=== PATIENT | male | born 2000 | race African-American/Black ===

== ENCOUNTER 2020-10-13 07:00 | Outpatient (RCR) | payer OTHER, SELFPAY | END 2020-10-14 08:00 | disposition home or self-care (01) | LOC: HO.PT 07:00 | PROVIDERS: PCP Pediatrics; Visit Provider Physical Medicine & Rehabilitation | DX: M54.5 Low back pain (principal) | CPT/HCPCS: 97110; 97112; 97162 ==

== ENCOUNTER 2020-10-21 19:57 | Inpatient (IN) | payer OTHER, SELFPAY ==
--- NOTE | ~2020-10-21 | MR_ITS ---
EXAMINATION: MR CERVICAL SPINE WITHOUT CONTRAST CLINICAL INFORMATION: Bilateral leg weakness. COMPARISON: None available. TECHNIQUE: MRI of the cervical spine was obtained using routine sequences without contrast. FINDINGS: Normal anatomic alignment. Normal, homogeneous marrow signal throughout. No suspicious marrow edema. The vertebral body heights are maintained. Mild disc desiccation from C2-C6 without significant loss of height. The spinal cord is normal in appearance. Limited evaluation of the soft tissues of the neck without demonstrated abnormalities. The flow voids of the major cervical vessels are maintained. Normal appearance of the cervicomedullary junction and visualized posterior fossa. The cerebellar tonsils are positioned at the level the foramen magnum. SPINAL LEVELS: C2-C3: Normal annular contour. There is mild right and no left uncovertebral joint arthropathy. There is no facet joint arthropathy. There is no neural foraminal stenosis. There is no spinal canal stenosis. C3-C4: Minimal disc-osteophyte complex. There is moderate right and mild left uncovertebral joint arthropathy. There is mild bilateral facet joint arthropathy. There is moderate right and mild left neural foraminal stenosis. There is no spinal canal stenosis. C4-C5: Mild disc-osteophyte complex. There is mild bilateral uncovertebral joint arthropathy. There is mild bilateral facet joint arthropathy. There is mild bilateral neural foraminal stenosis. There is no spinal canal stenosis. C5-C6: Mild disc-osteophyte complex. There is mild bilateral uncovertebral joint arthropathy. There is moderate and mild left facet joint arthropathy. There is mild right and no left neural foraminal stenosis. There is no spinal canal stenosis. C6-C7: Mild disc-osteophyte complex. There is mild bilateral uncovertebral joint arthropathy. There is mild bilateral facet joint arthropathy. There is mild right and no left neural foraminal stenosis. There is no spinal canal stenosis. C7-T1: Mild disc-osteophyte complex. There is no uncovertebral joint arthropathy. There is no facet joint arthropathy. There is no neural foraminal stenosis. There is no spinal canal stenosis. 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 Mild to moderate neural foraminal narrowings from C3-C7. No overt spinal canal stenosis. No demonstrated spinal cord signal abnormalities.
--- NOTE | ~2020-10-21 | MR_ITS ---
EXAMINATION: MR LUMBAR SPINE WITHOUT CONTRAST CLINICAL INFORMATION: Status post fall. Severe back pain. Unable to ambulate. COMPARISON: Lumbar spine CT 10/21/2020. TECHNIQUE: MRI of the lumbar spine was obtained using routine sequences without contrast. FINDINGS: The lumbar vertebral bodies maintain normal heights and alignment. No compression fracture is seen. There is no bone marrow edema. Mild disc height loss is seen at L4-L5 and L5-S1. The distal spinal cord appears normal. The conus medullaris terminates normally at the L1 level. The visualized paraspinal muscles and intra-abdominal and pelvic contents are within normal limits. SPINAL LEVELS: L1-L2: No posterior disc abnormality. No spinal canal or neural foraminal stenosis. L2-L3: Minimal disc bulging. No spinal canal or neural foraminal stenosis. L3-L4: Disc bulging asymmetric to the right with right subarticular/foraminal protrusion resulting in effacement of the right subarticular zone causing compression of the traversing right L4 nerve root in addition to narrowing of the left subarticular zone. Moderate spinal canal stenosis. Mild bilateral neural foraminal stenosis. L4-L5: Diffuse disc bulging with central protrusion resulting in severe spinal canal stenosis with thecal sac compression and mass effect on the traversing nerve roots. Mild facet arthropathy. Mild bilateral neural foraminal stenosis. L5-S1: Disc bulging with right subarticular protrusion causing compression of the traversing right S1 nerve root and mild spinal canal stenosis. Mild facet arthropathy. Mild narrowing of the neural foramina. MR/MR lumbar spine wo con IMPRESSION: At L4-L5 there is disc bulging with central protrusion causing severe spinal canal stenosis with thecal sac compression and mass effect on the traversing nerve roots. At L5-S1 there is right subarticular protrusion causing compression of the traversing right S1 nerve root and mild spinal canal stenosis. At L3-L4 there is right subarticular/foraminal protrusion causing compression of the traversing right L4 nerve root. Moderate spinal canal stenosis.
--- NOTE | ~2020-10-21 | CT_ITS ---
EXAMINATION: CT LUMBAR SPINE WITHOUT CONTRAST CLINICAL INFORMATION: Low back pain after a fall COMPARISON: MR lumbar spine 06/14/2015 TECHNIQUE: Axial images obtained through the lumbar spine. Coronal and sagittal reformatted images are performed at CT scanner This CT examination was performed using dose optimization techniques as appropriate, variously including the following: *Automated exposure control *Adjustment of mA and/or kV according to patient size (this includes techniques or standardized protocols for targeted exams where dose is matched to indication/reason for exam; i.e. extremities or head) *Use of iterative reconstruction technique DLP; 804 mGy-cm FINDINGS: Lumbar vertebrae have normal height and alignment. No fracture or bone destruction. No paraspinal hematoma or fluid collection. Narrowing of the L4-L5 and L5-S1 disc height similar to prior MR exam. Facet joints are normal. No spondylolysis or spondylolisthesis. CT/CT lumbar spine wo con IMPRESSION: No acute change of lumbar spine. Stable mild disc height narrowing L4-L5 L5-S1 unchanged since prior MR study of 2014.
[2020-10-21 20:16] VITALS: BP 150/96; PULSE 59; RESP 16; TEMP 36.9; O2SAT 96; BMI 34.2
[2020-10-21 20:42] VITALS: BP 146/98; PULSE 63; RESP 18; TEMP 36.8; O2SAT 97
[2020-10-21 21:58] VITALS: BP 136/78; PULSE 64; RESP 16; TEMP 36.9
--- NOTE | 2020-10-21 22:06 | ED_ITS ---
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 Reports legs gave out and fell/twisting backwards, denies direct back trauma/injury. Was able to get himself off ground/ambulate after incident, however states difficulty pain with ambulating/sitting or moving since secondary to pain. Admits to lower extremity tingling/radiation of pain. Denies urinary retention/incontinence, fever, chills MD elicited complaint: back pain Related Data Allergies Allergy/AdvReac Type Severity Reaction Status Date / Time No Known Allergies Allergy Verified 10/21/20 20:23 Review of Systems Review of Systems: Constitutional: No Weight loss, No Fever, No Chills, No Malaise Cardiovascular: No Chest Pain, No SOB Respiratory: No Cough Gastrointestinal: No Nausea, No Vomiting, No Abdominal pain Genitourinary: No Hematuria, No Urinary Incontinence/retention, No Urgency, No Urinary Flow Changes, No Hesitancy Musculoskeletal: + acute on chronic back pain pain, No Myalgias, No Joint Swelling Skin: No Skin Lesions, No rash Neuro: + Weakness, + Numbness/tingling Yes all other systems are reviewed and are negative [facility] Past Medical History Attestation statement: The following information was validated with the patient. 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 Narrowing of lumbar spine Stenosis of lumbosacral spine Social History Social History Alcohol intake: never Smoked in Last 30 Days: No Use of substances other than those prescribed or required for medical reasons: No Advance Directives: No Advance Directives Information Provided: Yes Physical Exam Vital Signs: Vital Signs: Last Vital Signs Temp 98.9 F 10/21/20 23:56 Pulse 59 10/22/20 00:35 Resp 16 10/22/20 00:35 BP 159/78 H 10/21/20 23:56 Pulse Ox 96 10/22/20 00:35 Body Mass Index 34.2 Const: General: cooperative, healthy appearing, comfortable and no acute distress Orientation/consciousness: patient oriented x3 Limitations: no limitations HENMT: Head: Yes normal to inspection Ears: hearing grossly normal bilaterally General nose exam: Normal external nose present Face and sinus: Yes normal facial exam Eyes: General: appearance normal, both eyes and all related structures EOM: EOMs intact bilaterally Neck: Neck: Yes normal visual inspection Resp: Effort & Inspection: normal respiratory effort Cardio: Rate: regular rate Peripheral pulses: dorsalis pedis present GI: Inspection: Yes normal to inspection : Other: Sensation intact to light touch perirectally. Rectal tone intact Back/Spine/Pelvis: Other: No midline thoracic/lumbar spinous tenderness. No step-offs or deformity. Pain is not reproducible on exam Skin: Rashes: no rashes Wounds: no wounds Neuro: Other: Strength intact throughout against gravity. No saddle anesthesia. Great toe dorsiflexion intact General: patient oriented x3 and tone normal Gait exam (Neuro): Normal gait present Extrem: General: Yes normal to inspection Course Course Course Narrative: -CT without acute change of lumbar spine from prior MR in 2014. Patient reports mild symptomatic improvement with medications in the ED, however once moves pain worsens. Unable to get out of bed at this time. Will give IV Dilaudid and re-evaluate. Admission was discussed/offered, would like to avoid if possible -after multiple doses of IV pain medication mother and patient would like admission for further management. Case was discussed with hospitalist who refused secondary to no neurosurgery here. This was discussed with patient, with shared decision making will stay the night in ED for pain management, and re-evaluation in the morning. Do not see need to transfer patient at this time without red flag symptoms, good rectal tone and no acute findings on CT. Case discussed w/Dr. Crews who is in agreement with plan -0200--ED care transferred to Dr. 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 On exam VSS, NAD, no red flag symptoms, or midline spinous tenderness throughout. Strength intact throughout. Concern for MSK pain/strain/twisting injury. Lower concern for cauda equina/cord compression or fracture Plan: CT, Symptomatic treatment/reassess Discharge Plan Discharge Clinical Impression: Lumbar radiculopathy
[2020-10-21] MEDS: Ketorolac Tromethamine 30 MG/ML VIAL IVPUSH (22:10)
[2020-10-21] MEDS: Lidocaine 4 % Patch ADH..PATCH 1 PATCH TRANSDERMA (22:10)
[2020-10-21] MEDS: Morphine Sulfate 2 MG/ML CARTRIDGE IVPUSH (22:10)
[2020-10-21 23:12] VITALS: BP 126/72; PULSE 59; RESP 16; O2SAT 97
[2020-10-21 23:56] VITALS: BP 159/78; PULSE 60; RESP 16; TEMP 37.2; O2SAT 99
[2020-10-22] VITALS (8 sets, daily range): BP systolic 126–163; BP diastolic 61–97; PULSE 59–96; RESP 16–18; TEMP 36.5–36.8; O2SAT 96–100
[2020-10-22] MEDS: Cyclobenzaprine HCl 10 MG TABLET PO (00:26)
[2020-10-22] MEDS: HYDROmorphone HCl 1 MG/ML SYRINGE IVPUSH (00:27)
--- NOTE | 2020-10-22 01:32 | PC.NURSE ---
attempted to ambulate pt with walker and pt was unable to get out of bed do to pain pa kenton aware. mom want pt to stay and sleep the night with pain medication to help. pt will need a script for a walker for home. repot given to kai de la cruz.
[2020-10-22] MEDS: LORazepam 2 MG/ML VIAL IVPUSH (02:07)
--- NOTE | 2020-10-22 02:12 | PC.NURSE ---
PT A&O, NO SOB OR CHEST PAIN. ASSISTED PROVIDER WITH RECTAL EXAMINATION. PT MEDIATED PER MAR
--- NOTE | 2020-10-22 04:09 | PC.NURSE ---
pt is sleeping, no sign of distress.
--- NOTE | 2020-10-22 06:46 | PC.NURSE ---
pt able to move lower extremities however limited , not full ranged of motion. positive cms.
[2020-10-22 13:36] LABS: COVID-19 Test Negative (Negative); IDNOW Serial# 9DD0AD1C
[2020-10-22 15:22] LABS: MANUAL DIFF FLAG NO
[2020-10-22 15:23] LABS: Basophils Percent Auto 0.2 % (0-2); Eosinophils Percent Auto 0.1 % (0-4); Hematocrit 46.2 % (42-52); Hemoglobin 16.1 g/dl (14.0-18.0); Imm Gran Abs Auto 0.04 X10*3/uL (0.00-0.03); Imm Gran Pct Auto 0.3 % (0.0-0.4); Lymphocytes Absolute Auto 1.7 X10*3/uL (1.2-4.9); Lymphocytes Percent Auto 13.8 % (20-40); Mean Corpuscular HGB Conc 34.8 g/dl (31.0-36.0); Mean Corpuscular Hemoglobin 29.2 pg (27.0-33.0); Mean Corpuscular Volume 83.8 fL (80-98); Mean Platelet Volume 9.3 fL (9.4-12.4); Monocytes Absolute Auto 0.9 X10*3/uL (0.1-1.2); Neutrophils Absolute Auto 9.5 X10*3/uL (2.0-8.3); Neutrophils Percent Auto 78.6 % (45-73); Platelet Count 238 X10*3/uL (160-400); Red Blood Count 5.51 X10*6/uL (4.60-5.80); Red Cell Distribution Width 12.1 % (11.0-16.0); White Blood Count 12.1 X10*3/uL (4.8-10.8)
[2020-10-22 15:55] LABS: Anion Gap 13 (12-20); Blood Urea Nitrogen 18 mg/dL (9-16); Calcium 9.6 mg/dL (8.4-10.2); Carbon Dioxide 27 mmol/L (22-29); Chloride 104 mmol/L (96-108); Creatinine Clr Calc Pharmacy 133.3; Estimated Glomerular Filt Rate > 60; Glucose Random 95 mg/dL (60-115); Potassium 4.1 mmol/L (3.3-5.1); Sodium 140 mmol/L (135-145)
[2020-10-22 16:10] LABS: Erythrocyte Sedimentation Rate 2 MM/HR (0-15)
--- NOTE | 2020-10-22 16:40 | PC.NURSE ---
pt resting quietly in room laying semi fowlers , resp wnl, neuros intact. pt denies pain while lying down, pain increases with movement 9/10 pain when trying to walk. plan is for pt to be admitted to [facility] for pain control. pt will follow up with [facility] neuro on saturday.
--- NOTE | 2020-10-22 17:21 | P.HPHOSP_ITS ---
History of Present Illness Date of Service: 10/22/20 Chief Complaint: Fall and back pain. 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 Initially Was able to get himself off ground/ambulate after he came home but afterwards has pain with ambulating/sitting or moving since secondary to pain. Admits to lower extremity tingling/radiation of pain. Denies urinary retention/incontinence, fever, chills No other symptoms accept above described. As per the ED:Spoke to neurosurgical CHERRY Quinones at [facility] multiple times, MRIs reviewed, case reviewed, and deemed patient is not an emergent surgical candidate, is pain management, and will have him see them in clinic on Saturday. Plan to admit to our hospital for further management. [facility] refused transfer. Both parents are in agreement with the planned to admit as well as the patient himself- pain management and in addition we have discussed the case with Neurology on-call and plan to admit for pain management and will continue to monitor the patient here. Family understands if neurological symptom worsen -he might need to be transferred that situation. Past medical history: Compressed cervical disc Lumbar disc prolapse with root compression Narrowing of lumbar spine Stenosis of lumbosacral spine Review of Systems Review of Systems: Denies any chest pain or shortness of breath or abdominal pain or fever or chills or any urinary complaints. Denies any vision changes or any dizziness. Denies any nausea or vomiting Denies Cough or phlegm Has bilateral lower extremity pain and weakness at least 4 week duration which was got worse after yesterday fall. [facility] Medical History Compressed cervical disc Lumbar disc prolapse with root compression Narrowing of lumbar spine Stenosis of lumbosacral spine Pertinent family history: Not contributory to this visit. Social History Household Members: Family Housing: House Do you presently have visiting nurse or other home services: No Alcohol intake: never Smoking Status: Former smoker Tobacco Type: Cigarette Smoked in Last 30 Days: No Use of substances other than those prescribed or required for medical reasons: No Currently Displaying Signs/Symptoms of Drug Intoxication Withdrawal: No Have you been hit, kicked, punched, or otherwise hurt by someone within the past year? If so, by whom?: No Do you feel safe in your current relationship?: Yes Is there a partner from a previous relationship who is making you feel unsafe now?: No Are you made to feel afraid or neglected: No Advance Directives: No Advance Directives Information Provided: Yes Do you have thoughts of harming others: None Do you have a plan to hurt others: No Plan Recently lost weight without trying: No Meds Allergies Allergy/AdvReac Type Severity Reaction Status Date / Time No Known Allergies Allergy Verified 10/21/20 20:23 Home Medications Medication Instructions Recorded Confirmed Type prednisone PO 10/22/20 History pregabalin [Lyrica] 75 mg PO BID 10/22/20 10/22/20 History Physical Exam Vital Signs and Narrative: Vital Signs: Last Vital Signs Temp 98.2 F 10/22/20 13:33 Pulse 76 10/22/20 13:33 Resp 18 10/22/20 13:33 BP 139/76 10/22/20 13:33 Pulse Ox 97 10/22/20 13:33 Body Mass Index 34.2 Physical exam: Constitutional: No Weight loss, No Fever, No Chills, No Malaise Cardiovascular: No Chest Pain, No SOB Respiratory: No Cough Gastrointestinal: No Nausea, No Vomiting, No Abdominal pain Genitourinary: No Hematuria, No Urinary Incontinence/retention, No Urgency, No Urinary Flow Changes, No Hesitancy Musculoskeletal: + acute on chronic back pain pain, No Myalgias, No Joint Swelling Skin: No Skin Lesions, No rash Neuro:Eomi , Perrla Adduction and abduction lower extremity intact No urinary or bowel incontinence Bilateral legs have so somewhat weakness for at least 4/5 (right>left) Has some numbness and tingling on the foot area Upper extremities sensation and strength is intact. dtr: Equivocal Yes all other systems are reviewed and are negative. Results Labs CBC and Chem 7: 10/22/20 15:18 10/23/20 08:17 Labs: Laboratory Results - last 24 hr 10/22/20 10/22/20 10/22/20 13:14 15:18 15:18 MCV 83.8 MCH 29.2 MCHC 34.8 RDW 12.1 Plt Count 238 MPV 9.3 L Immature Gran % (Auto) 0.3 Neut % (Auto) 78.6 H Lymph % (Auto) 13.8 L [place] % (Auto) 7.0 Eos % (Auto) 0.1 Baso % (Auto) 0.2 Lymph # (Auto) 1.7 [place] # (Auto) 0.9 Eos # (Auto) 0.0 Baso # (Auto) 0.0 Abs Immat Gran (auto) 0.04 H Absolute Neuts (auto) 9.5 H Absolute Nucleated RBC 0.000 Nucleated RBC % (auto) 0.0 ESR 2 Anion Gap Estim Creat Clear Calc Estimated GFR Random Glucose Calcium C-Reactive Protein COVID-19 (MILEY) Negative COVID-19 Clin Com See Note 10/22/20 15:18 MCV MCH MCHC RDW Plt Count MPV Immature Gran % (Auto) Neut % (Auto) Lymph % (Auto) [place] % (Auto) Eos % (Auto) Baso % (Auto) Lymph # (Auto) [place] # (Auto) Eos # (Auto) Baso # (Auto) Abs Immat Gran (auto) Absolute Neuts (auto) Absolute Nucleated RBC Nucleated RBC % (auto) ESR Anion Gap 13 Estim Creat Clear Calc 133.3 Estimated GFR > 60 Random Glucose 95 Calcium 9.6 C-Reactive Protein 0.10 COVID-19 (MILEY) COVID-19 Clin Com Imaging Radiologist's Impressions: Impressions Lumbar Spine CT 10/21/20 23:18 IMPRESSION: No acute change of lumbar spine. Stable mild disc height narrowing L4-L5 L5-S1 unchanged since prior MR study of 2014. Lumbar Spine MRI 10/22/20 10:29 IMPRESSION: At L4-L5 there is disc bulging with central protrusion causing severe spinal canal stenosis with thecal sac compression and mass effect on the traversing nerve roots. At L5-S1 there is right subarticular protrusion causing compression of the traversing right S1 nerve root and mild spinal canal stenosis. At L3-L4 there is right subarticular/foraminal protrusion causing compression of the traversing right L4 nerve root. Moderate spinal canal stenosis. Assessment and Plan (1) Lumbar radiculopathy: Status: Acute (2) Protruded lumbar disc: Status: Acute 1. Acute on chronic back pain: Probably related to acute on chronic lumbar radiculopathy: Will start the patient on IV Toradol, oxycodone, po tanzidine, omeprazole Neuro checks Neuro evaluation As per the patient family patient already has appointment on Saturday with Neurosurgery, the patient patient condition worsen we will transfer the patient to [facility] patient's family is in agreement with that.
[2020-10-22] MEDS: Ketorolac Tromethamine 15 MG/ML VIAL IV ×2 (17:34→23:29)
[2020-10-22] MEDS: dexAMETHasone sod phosphate 4 MG/ML VIAL 6 MG IVPUSH (18:16)
[2020-10-22] MEDS: Lactated Ringers 1,000 ML 80 ML IVCONT (18:17)
--- NOTE | 2020-10-22 19:57 | PC.NURSE ---
pt is alert and oriented x4. gillis. no s/s of distress noted. plan is to be admitted.
[2020-10-22] MEDS: Pregabalin 75 MG CAPSULE PO (21:23)
[2020-10-22] MEDS: TiZANidine HCL 4 MG TABLET PO (21:23)
[2020-10-22] MEDS: Omeprazole 20 MG CAPSULE.DR PO (21:25)
[2020-10-23] VITALS (7 sets, daily range): BP systolic 107–160; BP diastolic 57–79; PULSE 60–75; RESP 15–19; TEMP 36.3–37.1; O2SAT 95–98
[2020-10-23] MEDS: Ketorolac Tromethamine 15 MG/ML VIAL IV ×4 (06:00→23:27)
[2020-10-23] MEDS: Lactated Ringers 1,000 ML 80 ML IVCONT ×2 (06:03→18:43)
[2020-10-23] MEDS: oxyCODONE HCl Immed Release 5 MG TABLET PO (06:05)
[2020-10-23 09:05] LABS: Anion Gap 13 (12-20); Blood Urea Nitrogen 21 mg/dL (9-16); Carbon Dioxide 30 mmol/L (22-29); Chloride 104 mmol/L (96-108); Creatinine Clr Calc Pharmacy 117.6; Estimated Glomerular Filt Rate > 60; Glucose Random 131 mg/dL (60-115); Potassium 4.2 mmol/L (3.3-5.1); Sodium 143 mmol/L (135-145)
[2020-10-23 09:10] LABS: Calcium 9.4 mg/dL (8.4-10.2)
[2020-10-23] MEDS: Pregabalin 75 MG CAPSULE PO ×2 (09:59→20:34)
[2020-10-23] MEDS: Omeprazole 20 MG CAPSULE.DR PO ×2 (09:59→22:12)
[2020-10-23] MEDS: polyethylene glycoL 3350 17 GM POWD.PACK PO (09:59)
[2020-10-23] MEDS: TiZANidine HCL 4 MG TABLET PO ×2 (09:59→20:34)
[2020-10-23] MEDS: Enoxaparin Sodium 40 MG/0.4 ML SYRINGE SUBCUT (10:00)
--- NOTE | 2020-10-23 10:11 | P.CNNE_ITS ---
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 He had low back pain now and then. He said that he played basketball few weeks ago and after that his pain worsened. He came to emergency room yesterday with severe pain and weakness and numbness in legs and inability to walk. There was no complaint of any bowel bladder problems. He denied any neck pain or any mental symptoms. Review of Systems Review of Systems: No recent cold or flu-like illness or bowel bladder complained or trauma. [facility] Past Medical History Medical History Compressed cervical disc Lumbar disc prolapse with root compression Narrowing of lumbar spine Stenosis of lumbosacral spine Social History Social History Household Members: Family Housing: House Do you presently have visiting nurse or other home services: No Alcohol intake: never Smoking Status: Former smoker Tobacco Type: Cigarette Smoked in Last 30 Days: No Use of substances other than those prescribed or required for medical reasons: No Currently Displaying Signs/Symptoms of Drug Intoxication Withdrawal: No Have you been hit, kicked, punched, or otherwise hurt by someone within the past year? If so, by whom?: No Do you feel safe in your current relationship?: Yes Is there a partner from a previous relationship who is making you feel unsafe now?: No Are you made to feel afraid or neglected: No Advance Directives: No Advance Directives Information Provided: Yes Do you have thoughts of harming others: None Do you have a plan to hurt others: No Plan Recently lost weight without trying: No Meds Allergies Allergy/AdvReac Type Severity Reaction Status Date / Time No Known Allergies Allergy Verified 10/21/20 20:23 Home Medications Medication Instructions Recorded Confirmed Type prednisone PO 10/22/20 History pregabalin [Lyrica] 75 mg PO BID 10/22/20 10/22/20 History Physical Exam Vital Signs: Vital Signs: Last Vital Signs Temp 97.9 F 10/23/20 07:21 Pulse 75 10/23/20 07:21 Resp 16 10/23/20 07:21 BP 160/69 H 10/23/20 07:21 Pulse Ox 96 10/23/20 07:21 Body Mass Index 34.2 He was alert and awake with normal spontaneity of speech fluency comprehension and affect. He was very well-built muscular young man in no distress. Pupils were equal and reactive to light and extraocular muscles were intact. Visual adames are full. Face was symmetrical. There was no pronator drift. [id number] testing was normal. Arm reflexes were trace to 1+ well knee r eflexes were 2 to 3+ and ankle reflexes were trace to 1+ with flexor plantars. He was able to lift his legs against gravity. Joint position sensation in toes was present. Results Labs CBC & Chem 7: 10/22/20 15:18 10/23/20 08:17 Labs: Short CBC 10/22/20 Range/Units 15:18 WBC 12.1 H (4.8-10.8) X10*3/uL Hgb 16.1 (14.0-18.0) g/dl Hct 46.2 (42-52) % Plt Count 238 (160-400) X10*3/uL BMP 10/22/20 10/23/20 15:18 08:17 Sodium 140 143 Potassium 4.1 4.2 Chloride 104 104 Carbon Dioxide 27 30 H BUN 18 H 21 H Creatinine 1.12 1.27 Calcium 9.6 9.4 His lumbosacral spine MRI revealed multilevel degenerative changes and discs and multilevel disc osteophyte complex. At L5-S1 it was impinging on the right exiting nerve root, at L4-5 it resulted in significant stenosis with compression of nerve roots, and at L3-4 again there was right-sided disc osteophyte bulge that was moderately narrowing the exiting foramen. A noncontrast head CT in 2012 reveal no significant abnormality. Assessment and Plan (1) Spinal stenosis of lumbar region: Status: Acute 19 years old man with congenital lumbosacral spinal stenosis with multilevel degenerative disc disease and multilevel disc osteophyte disease resulting in significant pathology at L5-S1 and L4-5. This would explain his complain of severe pain and numbness or weakness of her right leg. While in the bed, he was not in any distress. At this time my recommendation is to continue oral prednisone starting with 60 mg daily for 3 days and then tapering it off, which might help to alleviate some information and provide pain relief. Lyrica dose could be increased to 150 mg 3 times a day. I would continue this medicine after a week or 2 if it was providing significant pain relief. Otherwise he required neurosurgical intervention. Sometime an epidural injection can help but because of multilevel disease and significant pathology, this would not be a long-term solution. (2) Hyperreflexia: Status: Acute His knee reflexes are significantly brisk compared to others, which was a significant finding because of significant lumbosacral spinal stenosis diminishing his leg reflexes. He might have similar pathology and cervical spine. I would recommend an MRI of cervical spine for further investigation.
[2020-10-23] MEDS: dexAMETHasone sod phosphate 4 MG/ML VIAL 6 MG IVPUSH (11:24)
--- NOTE | 2020-10-23 11:49 | HO.PM.IMPN ---
Subjective Subjective Date of Service: 10/23/20 Interval History: Back pain and lower extremity pain Review of Systems Says that with the pain medication pain slightly better and still little bit more can move but otherwise no worsening of symptoms. Denies any chest pain or shortness of breath or abdominal pain or fever or chills or nausea vomiting. Physical Exam Vital Signs: Vital Signs: Last Vital Signs Temp 97.9 F 10/23/20 07:21 Pulse 75 10/23/20 07:21 Resp 16 10/23/20 07:21 BP 160/69 H 10/23/20 07:21 Pulse Ox 96 10/23/20 07:21 Body Mass Index 34.2 Physical exam: Constitutional: Not in acute distress Cvs: rrr, [id number] , no murmur res: clear to auscultation ,no rhonchii or wheezing abd: no rebound or guarding ,nt, bs present. ext pulses present , no cyanosis neuro: similar as yesterday. Objective Data Current Medications Generic Name Dose Route Start Last Admin Trade Name Eugeneq PRN Reason Stop Dose Admin Docusate Sodium 100 mg 10/22/20 17:17 Docusate Sodium 100 Mg Capsule PO BID PRN Constipation Enoxaparin Sodium 40 mg 10/23/20 09:00 10/23/20 10:00 Enoxaparin Sodium 40 Mg/0.4 Ml Syringe SUBCUT 40 mg DAILY RODOLFO Administration Lactated Ringer's 1,000 mls @ 80 mls/hr 10/22/20 17:45 10/23/20 07:40 Lr IVCONT 0 mls/hr .[id number] RODOLFO Infusion Ketorolac Tromethamine 15 mg 10/22/20 17:17 10/23/20 11:24 Ketorolac Tromethamine 15 Mg/Ml Vial IV 15 mg Q6H RODOLFO Administration Omeprazole 20 mg 10/22/20 21:00 10/23/20 09:59 Omeprazole 20 Mg Capsule.Dr PO 20 mg BID RODOLFO Administration Oxycodone HCl 5 mg 10/22/20 17:17 10/23/20 06:05 Oxycodone Hcl Immed Release 5 Mg Tablet PO 5 mg Q6H PRN Administration Pain, Mild (Pain Scale 1-3) Polyethylene Glycol 17 gm 10/23/20 09:00 10/23/20 09:59 Polyethylene Glycol 3350 17 Gm Powd.Pack PO 17 gm DAILY RODOLFO Administration Pregabalin 75 mg 10/22/20 21:00 10/23/20 09:59 Pregabalin 75 Mg Capsule PO 75 mg BID RODOLFO Administration Sodium Chloride 3 ml 10/23/20 00:00 10/23/20 08:05 0.9 % Sodium Chloride Flush 3 Ml Syringe IVFLUSH Not Given QSHIFT RODOLFO Tizanidine HCl 4 mg 10/22/20 21:00 10/23/20 09:59 Tizanidine Hcl 4 Mg Tablet PO 4 mg BID RODOLFO Administration Labs CBC & Chem 7: 10/22/20 15:18 10/24/20 09:07 Assessment and Plan (1) Spinal stenosis of lumbar region: Status: Acute (2) Lumbar radiculopathy: Status: Acute Assessment and Plan: 1. Acute on chronic back pain: Probably related to acute on chronic lumbar radiculopathy: continue IV Toradol, oxycodone, po tanzidine, omeprazole Neuro checks Neuro evaluation pending :added prednisone , lyrica
--- NOTE | 2020-10-23 15:10 | PC.NURSE ---
Pt A&Ox3, neuros WNL excpet paresthesias to right foot/toes and hyperreflexia with knee relfex test. Pt has not ambulated today, only able to take 3 steps yesterday. VSS, BP has been elevated, pt denies pain. NSR 70-90. Lungs clear, on room air. Afebrile. Voiding in urinal. Uses call gutierrez appropriately. Report given to [facility]. nurse.
[2020-10-23] MEDS: 0.9 % Sodium Chloride Flush 3 ML SYRINGE IVFLUSH ×2 (16:52→23:27)
[2020-10-23] MEDS: HYDROmorphone HCl 0.5 MG/0.5 ML SYRINGE IVPUSH (20:33)
[2020-10-23] MEDS: Docusate Sodium 100 MG CAPSULE PO (20:34)
[2020-10-24 04:00] VITALS: BP 141/68; PULSE 67; RESP 16; TEMP 36.4; O2SAT 97
[2020-10-24] MEDS: Ketorolac Tromethamine 15 MG/ML VIAL IV (05:45)
[2020-10-24] MEDS: Lactated Ringers 1,000 ML 80 ML IVCONT (05:46)
[2020-10-24 07:31] VITALS: BP 166/76; PULSE 56; RESP 16; TEMP 36.7; O2SAT 95
--- NOTE | 2020-10-24 08:34 | MHC.CM.PN ---
pt lives at home c his mother in their home. he reports he is independent in his care. he denies the need for vna at dc. pt does not use an AD c ambulation at baseline. dc pt mother can assist him c his needs this will include a ride home at pa. dc plan is home no svcs at this time. cm to cont. to follow.
[2020-10-24] MEDS: polyethylene glycoL 3350 17 GM POWD.PACK PO (09:13)
[2020-10-24] MEDS: predniSONE 20 MG TABLET 60 MG PO (09:13)
[2020-10-24] MEDS: Pregabalin 150 MG CAPSULE PO ×2 (09:13→13:31)
[2020-10-24] MEDS: HYDROmorphone HCl 2 MG TABLET 1 MG PO ×2 (09:13→14:48)
[2020-10-24] MEDS: Enoxaparin Sodium 40 MG/0.4 ML SYRINGE SUBCUT (09:14)
[2020-10-24] MEDS: Omeprazole 20 MG CAPSULE.DR PO (09:14)
[2020-10-24] MEDS: 0.9 % Sodium Chloride Flush 3 ML SYRINGE IVFLUSH (09:14)
[2020-10-24] MEDS: TiZANidine HCL 4 MG TABLET PO (09:14)
[2020-10-24 09:46] LABS: Anion Gap 11 (12-20); Blood Urea Nitrogen 19 mg/dL (9-16); Calcium 8.9 mg/dL (8.4-10.2); Carbon Dioxide 29 mmol/L (22-29); Chloride 104 mmol/L (96-108); Creatinine Clr Calc Pharmacy 135.8; Estimated Glomerular Filt Rate > 60; Glucose Random 82 mg/dL (60-115); Potassium 4.2 mmol/L (3.3-5.1); Sodium 140 mmol/L (135-145)
[2020-10-24 11:26] VITALS: BP 174/89; PULSE 86; RESP 16; TEMP 36.9; O2SAT 96
--- NOTE | 2020-10-24 12:32 | P.DS_ITS ---
DS: Providers Provider Date of Service: 11/04/20 Date of admission: 10/22/20 17:17 Primary care physician: Hira Blum MD Consults: 10/22/20 17:20 Consult to Neurology Routine Consulting Provider: [facility] Reason for consultation: ` spinal stenosis/lower extremity pain and weakness. DS: Diagnosis Discharge Diagnosis (1) Spinal stenosis of lumbar region: Status: Acute (2) Lumbar radiculopathy: Status: Acute DS: Medications Discharge Medications Home Medications: Previous Rx's Medication Instructions Recorded hydromorphone 1 mg PO Q4H PRN #1 tab 10/24/20 omeprazole 20 mg PO BID #60 cap 10/24/20 prednisone 60 mg PO DAILY #7 tab 10/24/20 pregabalin [Lyrica] 150 mg PO TID #0 cap 10/24/20 tizanidine 4 mg PO BID #7 tab 10/24/20 DS: Summary Hospital Course Hospital Course: 19-year-old male with a PMHx lumbosacral stenosis, came complaining of acute on chronic low back pain s/p mechanical fall while walking dog in the snow [employer]. Reports legs gave out and fell/twisting backwards, denies direct back t rauma/injury. Initially Was able to get himself off ground/ambulate after he came home but afterwards has pain with ambulating/sitting or moving since secondary to pain. Admits to lower extremity tingling/radiation of pain. Denies urinary retention/incontinence, fever, chills No other symptoms accept above described. As per the ED:Spoke to neurosurgical CHERRY Quinones at [facility] multi ple times, MRIs reviewed, case reviewed, and deemed patient is not an emergent surgical candidate, is pain management, and will have him see them in clinic on Saturday. Plan to admit to our hospital for further management. [facility] refused transfer. Both parents are in agreement with the planned to admit as well as the patient himself- pain management and in addition we have discussed the case with Neurology on-call and plan to admit for pain management and will continue to monitor the patient here. 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 This would explain his complain of severe pain and numbness or weakness of her right leg. While in the bed, he was not in any distress. Seen by neurology recommended to start on prednisone and pregabalin-subsequently added Dilaudid for pain control and received Toradol also. Pain muir slightly better but still has weakness//pain: Discussed with the family and Neurosurgery in [facility] plan to transfer the patient to [facility] for further possible neurosurgical intervention if needed. (2) Hyperreflexia: His knee reflexes are significantly brisk compared to others, which was a significant finding because of significant lumbosacral spinal stenosis diminishing his leg reflexes. He might have similar pathology and cervical spine. I would recommend an MRI of cervical spine for further investigation- at the time of discharge summary the MRI done -results pending , we will send cd's of imaging with the patient. Above management discussed with the patient and his mother in detail length- they both understand and in agreement with the above plan, time spent 50 minutes and 50% time spent on counseling. Significant findings: As above. Procedures performed: None. Treatment and response: As above. Complications: None. Time Spent with Patient Time attestation: Total time spent providing and/or coordinating discharge services: Discharge coordination time: Greater than 30 minutes Physical Exam Vital Signs: Vital Signs: Last Vital Signs Temp 98.5 F 10/24/20 11:26 Pulse 86 10/24/20 11:26 Resp 16 10/24/20 11:26 BP 174/89 H 10/24/20 11:26 Pulse Ox 96 10/24/20 11:26 Body Mass Index 34.2 DS: Data Data Completed and Pending Labs on day of discharge: Laboratory Tests 10/22/20 10/22/20 10/22/20 13:14 15:18 15:18 WBC 12.1 H RBC 5.51 Hgb 16.1 Hct 46.2 MCV 83.8 MCH 29.2 MCHC 34.8 RDW 12.1 Plt Count 238 MPV 9.3 L Immature Gran % (Auto) 0.3 Neut % (Auto) 78.6 H Lymph % (Auto) 13.8 L Morrison % (Auto) 7.0 Eos % (Auto) 0.1 Baso % (Auto) 0.2 Lymph # (Auto) 1.7 Morrison # (Auto) 0.9 Eos # (Auto) 0.0 Baso # (Auto) 0.0 Abs Immat Gran (auto) 0.04 H Absolute Neuts (auto) 9.5 H Absolute Nucleated RBC 0.000 Nucleated RBC % (auto) 0.0 ESR 2 Sodium Potassium Chloride Carbon Dioxide Anion Gap BUN Creatinine Estim Creat Clear Calc Estimated GFR Random Glucose Calcium C-Reactive Protein COVID-19 (MILEY) Negative COVID-19 Clin Com See Note 10/22/20 10/23/20 10/24/20 15:18 08:17 09:07 WBC RBC Hgb Hct MCV MCH MCHC RDW Plt Count MPV Immature Gran % (Auto) Neut % (Auto) Lymph % (Auto) Morrison % (Auto) Eos % (Auto) Baso % (Auto) Lymph # (Auto) Morrison # (Auto) Eos # (Auto) Baso # (Auto) Abs Immat Gran (auto) Absolute Neuts (auto) Absolute Nucleated RBC Nucleated RBC % (auto) ESR Sodium 140 143 140 Potassium 4.1 4.2 4.2 Chloride 104 104 104 Carbon Dioxide 27 30 H 29 Anion Gap 13 13 11 L BUN 18 H 21 H 19 H Creatinine 1.12 1.27 1.10 Estim Creat Clear Calc 133.3 117.6 135.8 Estimated GFR > 60 > 60 > 60 Random Glucose 95 131 H D 82 D Calcium 9.6 9.4 8.9 C-Reactive Protein 0.10 COVID-19 (MILEY) COVID-19 Clin Com Discharge Plan Discharge Patient Disposition: Xfer SNF Referrals: [facility] [Outside] Hira Blum MD [Primary Care Provider] - Discharge Medications: New tizanidine 4 mg Tablet 4 mg PO BID Qty: 7 RF: 0 prednisone 20 mg tablet 60 mg PO DAILY Qty: 7 RF: 0 omeprazole 20 mg Capsule,Delayed Release(Dr/Ec) 20 mg PO BID Qty: 60 RF: 0 hydromorphone 2 mg Tablet 1 mg PO Q4H PRN (Reason: Pain, Moderate (Pain Scale 4-6) Qty: 1 RF: 0 Changed pregabalin [Lyrica] 75 mg Capsule 150 mg PO TID Qty: 0 RF: 0 Discontinued prednisone 20 mg tablet PO RF: 0 Discharge Orders: Discharge Order (Routine); Ordered 10/24/20 Ordered By: Tyson Solorzano Diet: advance to usual diet Activity on Discharge: As tolerated Stand Alone Forms: Patient Portal Discharge page Care Plan Goals: Patient probably has congenital lumbosacral spinal stenosis with multilevel degenerative disc disease and multilevel disc osteophyte disease resulting in significant pathology at L5-S1 and L4-5. He came with bilateral leg pain as well as back pain and has some degree of leg weakness as well as hyperreflexia seen by Neurology and recommended to transfer the patient to [facility] for further management, also recommended to get MRI if is not done by the time of transfer then can be done in [facility]. In addition patient was started on prednisone, Dilaudid, pregabalin-patient says that pain is better somewhat and weaknesses seems unchanged, discussed with Neurosurgery in [facility] Dr Butler have accepted the patient for [facility] stance for patient is subsequently being transferred to [facility]. Health Concerns: As above. Plan of Treatment: As above. Discharge Date/Time: 10/24/20 16:08
== END 2020-10-24 16:08 | disposition skilled nursing facility (03) | DRG 347 ==
LOC: HO.ED 10-22 15:54 → HO.EDOVER 10-22 17:48 → HO.IMC 10-22 18:41 → HO.S3 10-23 12:29 → HO.IMC 10-23 14:08 → HO.S3 10-23 15:55
PROVIDERS: Physician Assistant; Admitting Provider Internal Medicine; Emergency Provider Emergency Medicine; PCP Pediatrics; Visit Provider Internal Medicine
DX: M48.061 Spinal stenosis, lumbar region without neurogenic claudication (principal); R29.2 Abnormal reflex; M54.16 Radiculopathy, lumbar region; Z20.822 Contact with and (suspected) exposure to COVID-19; Z87.891 Personal history of nicotine dependence
CPT/HCPCS: 36415; 72131; 72141; 72148; 80048; 85025; 85652; 86140; 87635; 96374; 96375; 99285; J1100; J1170; J1650; J1885; J2060; J2270

== ENCOUNTER 2021-01-04 10:00 | Outpatient (RCR) | payer OTHER, SELFPAY | END 2021-01-05 08:00 | disposition home or self-care (01) | LOC: HO.PT 10:00 | PROVIDERS: PCP Pediatrics; Visit Provider Neurological Surgery | DX: Z98.890 Other specified postprocedural states (principal) | CPT/HCPCS: 97110; 97112; 97162 ==

== ENCOUNTER 2021-03-21 03:47 | Emergency (ER) | payer OTHER, SELFPAY ==
[2021-03-21 04:35] VITALS: BP 143/66; PULSE 78; RESP 16; TEMP 36.7; O2SAT 96; BMI 36.6
[2021-03-21 06:00] VITALS: BP 116/40; PULSE 58; RESP 15; TEMP 36.7; O2SAT 97
[2021-03-21] MEDS: Diphth,Pertus(ACell),Tet Adult 0.5 ML SYRINGE IM (06:15)
--- NOTE | 2021-03-21 06:27 | ED.WOUNDLAC ---
HPI - Wound/Laceration General Chief Complaint: Wound/Laceration Stated Complaint: hand lac Time Seen by Provider: 03/21/21 06:07 Source: patient Mode of arrival: ambulatory History of Present Illness HPI narrative: 20-year-old male who presents with laceration to the right wrist that he sustained while playing adult hide and seek. He states he caught his hand on a piece of metal and is unsure of when his last tetanus was. Related Data Previous Rx's Medication Instructions Recorded amoxicillin-pot clavulanate 1 tab PO Q12H 5 Days #10 tab 03/21/21 [Augmentin] Allergies Allergy/AdvReac Type Severity Reaction Status Date / Time No Known Allergies Allergy Verified 10/21/20 20:23 Review of Systems Review of Systems: Pertinent positives and negatives as stated in HPI 10 point review of systems is otherwise negative. PMFSH Past Medical History Source: nursing notes reviewed Medical History Compressed cervical disc Lumbar disc prolapse with root compression Narrowing of lumbar spine Stenosis of lumbosacral spine Social History Social History Household Members: Family Housing: House Do you presently have visiting nurse or other home services: No Alcohol intake: never Patient Tobacco Use Status: Never used Tobacco Use of substances other than those prescribed or required for medical reasons: No Advance Directives: No service: No Current occupational status: unemployed Physical Exam Vital Signs: Vital Signs: Last Vital Signs Temp 98.1 F 03/21/21 06:00 Pulse 58 03/21/21 06:00 Resp 15 03/21/21 06:00 BP 116/40 L 03/21/21 06:00 Pulse Ox 97 03/21/21 06:00 Body Mass Index 36.6 VITAL SIGNS: Reviewed. GENERAL: Well developed, well nourished, in no acute distress. HEAD: Normocephalic/atraumatic EYES: PERRLA, EOMI EARS: Ext canals without abnormality OROPHARYNX: no oral lesions noted, posterior pharynx clear NECK: Supple, no adenopathy LUNGS: Normal breath sounds. No adventitious sounds or accessory muscle use. SpO2<97> CARDIOVASCULAR: Regular rate and rhythm without noted murmurs ABDOMEN: Soft, non-tender, non-distended with bowel sounds. RIGHT WRIST/HAND: a 4 cm laceration that is hemostatic but involves subcutaneous tissue down to the muscle bundle and on full range of motion and exploration he is noted to have suspected injury to the EPL NEUROLOGIC: Alert and oriented x 4. Course Course Course Narrative: 20-year-old male with history and clinical presentation consistent with laceration and suspected injury to the EPL. This case was discussed with Dr. Butler, hand surgery, who recommends loose closure and placement in splint with follow-up by calling the office in the morning. Discharge Plan Discharge Clinical Impression: Laceration, Injury of tendon of hand Patient Disposition: Home, Self-Care Instructions: Care For Your Stitches (ED), Laceration (ED), Splint Care (ED), Tendon Laceration (ED) Additional Instructions: 1. Please call the office orthopedics to schedule an evaluation appointment tomorrow morning. 2. Recommend [id number] Tylenol/ ibuprofen as needed for pain control. return to the ER for acute worsening of symptoms. Prescriptions: New amoxicillin-pot clavulanate [Augmentin] 875-125 mg tablet 1 tab PO Q12H 5 Days Qty: 10 RF: 0 Referrals: Hira Blum MD [Primary Care Provider] - 2 days Felicia Butler MD [Physician] - 1 day ( Evaluation and treatment as indicated for suspected Rt EPL injury) Stand Alone Forms: Work/School Release
[2021-03-21] MEDS: Lidocaine HCl 1 % MPF 5 ML VIAL INFILTRATI ×2 (08:19→08:43)
== END 2021-03-21 09:33 | disposition home or self-care (01) ==
PROVIDERS: Emergency Provider Student in an Organized Health Care Education/Training Program; PCP Pediatrics
DX: S66.821A Laceration of other specified muscles, fascia and tendons at wrist and hand level, right hand, initial encounter (principal); S61.511A Laceration without foreign body of right wrist, initial encounter; W26.8XXA Contact with other sharp object(s), not elsewhere classified, initial encounter; Y93.89 Activity, other specified; Y92.096 Garden or yard of other non-institutional residence as the place of occurrence of the external cause; Y99.9 Unspecified external cause status
CPT/HCPCS: 12002; 29125; 90471; 90715; 99284

== ENCOUNTER → 2021-03-22 14:44 | Outpatient (BNVA) | payer OTHER, SELFPAY | PROVIDERS: PCP Pediatrics; Visit Provider Orthopaedic Surgery ==

== ENCOUNTER 2021-03-23 07:15 | Day surgery (SDC) | payer OTHER, SELFPAY ==
[2021-03-23 07:19] VITALS: BP 124/77; PULSE 60; RESP 20; TEMP 36.2; O2SAT 96; BMI 35.9
--- NOTE | 2021-03-23 07:45 | MHC.SHP ---
Pre-Procedural Eval Section A Date of Service: 03/23/21 Section B Chief Complaint: tendon repair,laceration Allergies: Allergies Allergy/AdvReac Type Severity Reaction Status Date / Time No Known Allergies Allergy Verified 03/22/21 14:53 Plan I have reviewed the history and physical and performed a pertinent physical examination on my patient. No changes have occurred unless specified.
--- NOTE | 2021-03-23 07:46 | W.PM.OPN ---
Operative Note Operative Note Date of Service: 03/23/21 Narrative: Operative Note Narrative: Preop diagnosis: 1. right radial wrist laceration 2. right abductor pollicis longus tendon laceration 3. Right extensor pollicis brevis tendon laceration 4. laceration of a branch of the superficial radial nerve to the thumb Postop diagnosis: Same Procedure: 1. Repair of right APL tendon x 2 slips 2. Repair of right EPB tendon 3. Repair of right radial wrist laceration 3.0 cm 4. Repair of a branch of the superficial radial nerve to the thumb at the wrist level Surgeon: Felicia Butler MD Anesthesia: general Findings: 3.0 cm transverse laceration over the radial aspect of the right wrist with laceration of 2 slips of the APL tendon, the EPB tendon and a he branch of the superficial radial nerve to the thumb. Implants: none Tourniquet time: Seventy-six minutes EBL: 5.0 ml Specimen: none Drains: None Complications: None Disposition: Brought to the recovery room in stable condition Plan: Follow-up in 10-14 days for wound check and suture removal place in a short-arm thumb spica splint, and referred to OT for a custom thermoplastic splint and tendon gliding exercises. Indications: The patient is a 20-year-old young man with a right radial wrist laceration and lacerations of the right APL and EPB tendons. This accidentally occurred on a piece of window glass . The risks and benefits of operative treatment, including but not limited to risk of damage to blood vessels, nerves, tendons, infection, recurrence, persistent pain or numbness, incomplete resolution of preoperative symptoms, or need for further surgery were discussed with the patient and they wished to proceed with surgery. Procedure: Once consent was obtained patient was brought back to the operating suite and placed in the operating table in a supine position. . Perioperative antibiotics and anesthesia was administered by the anesthesia team. A tourniquet was applied to the proximal aspect of the right upper extremity and the limb was prepped and draped in a standard surgical fashion. The limb was elevated exsanguinated with Esmarch bandage and the tourniquet inflated to 250 mm of mercury for a total tourniquet time of 76 minutes. the patient's right radial wrist laceration measured 3.0 cm and was oriented transversely. the sutures were removed and the wound was gently opened using tenotomy scissors. I was able to identify the distal aspect of the abductor pollicis longus tendon, which consisted of 2 slips of the tendon. I was also able to draw the proximal aspect of the APL tendon slips into the wound after grasping 1 of them with a small hemostat. There were 2 separate abductor pollicis longus tendon slips. Some 4-0 Prolene suture was passed through each of these tendons and they were held with snaps So that they could be drawn back into the wound for repair. I was unable to identify the extensor pollicis brevis tendon either proximally or distally from the laceration site. I therefore made a 2 cm longitudinal incision over the dorsal aspect of the 1st metacarpal in line with the EPB tendon. The incision was madethrough the skin to the subcutaneous tissues using a 15. Blade. I then carefully dissected down to the level of the extensor pollicis brevis tendon which was laying on the 1st metacarpal. I was then able to trace the path proximally to the wound, and thereby identify the location of the EPB tendon in the wound. Again a suture was placed in this tendon for identification.. I then similarly made a 2 cm longitudinal incision over the 1st dorsal compartment proximal to the radial styloid. Incision was made through the skin to the subcutaneous tissues using a 15. Blade. I then carefully dissected down to the level of the 1st dorsal compartment. The 1st dorsal compartment was then opened longitudinally. There I was able to identify both slips of the APL tendon and also the more slender slip of the extensor pollicis brevis. A suture was passed through the distal aspect of the EPB tendon, and then I was able to pass the tendon distally to the wound. The more dorsal slip of the abductor pollicis longus tendon was 1st repaired using some 3-0 Ethibond suture. I then repaired the more volar slip of the APL tendon again using some 3-0 Ethibond suture. I then used some 6 0 Prolene to further secure the tendon edges using a running locked suture pattern. I then repaired the extensor pollicis brevis tendon using some 4-0 Prolene suture. After evaluating the tissues I was able to find and identify both the proximal and distal aspects of the lacerated branch of the superficial radial nerve. Scissors were used to carefully mobilized both the proximal and distal ends of the nerve in anticipation of possible repair. I elected to repair this using some 6 0 Prolene suture material. At this point the tourniquet was deflated and hemostasis obtained with a brief period of local pressure and bipolar electrocautery. The Wounds were copiously irrigated with normal saline. The subcutaneous layer was closed with 4-0 Vicryl suture, and the skin edges were reapproximated with 4-0 and 5-0 Prolene suture. The wound was infiltrated with some 1% lidocaine with epinephrine for postop pain control and a sterile dressing And short-arm thumb spica splint was applied. The patient appears to have tolerated the procedure well and with no complications. All digits were well vascularized conclusion of the case.
[2021-03-23] MEDS: ceFAZolin Sodium/Dextrose,Iso 2 GM/50 ML PIGGYBACK IV (07:47)
--- NOTE | 2021-03-23 08:14 | P.CONAN_ITS ---
[facility] Active Problems Active Problems: All Active Problems (Updated 03/22/21 @ 15:57 by Felicia maloney MD) Extensor tendon laceration of right wrist with open wound (Acute) Hyperreflexia (Acute) Spinal stenosis of lumbar region (Acute) Lumbar radiculopathy (Acute) Protruded lumbar disc (Acute) Past Medical History Medical History Compressed cervical disc Lumbar disc prolapse with root compression Narrowing of lumbar spine Stenosis of lumbosacral spine Social History Social History Household Members: Family Housing: House Do you presently have visiting nurse or other home services: No Alcohol intake: never Patient Tobacco Use Status: Never used Tobacco Use of substances other than those prescribed or required for medical reasons: No Are you DNR?: No Advance Directives: No Advance Directives Information Provided: No service: No Current occupational status: employed 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 Meds Allergies Allergy/AdvReac Type Severity Reaction Status Date / Time No Known Allergies Allergy Verified 03/22/21 14:53 Exam Exam Date and Time: March 23, 2021 0814 Height,Weight and Vital Signs: Height 5 ft 11 in Weight 117.027 kg Last Vital Signs Temp 97.2 F 03/23/21 07:19 Pulse 60 03/23/21 07:19 Resp 20 03/23/21 07:19 BP 124/77 03/23/21 07:19 Pulse Ox 96 03/23/21 07:19 Airway Mallampati Class: II TM Dist: >3cm Neck ROM: Full Assessment and Plan Assessment Anesthesia Assessment: Anesthesia Plan Discussed and Chart Reviewed Final Anesthetic Review NPO: Yes ASA Class: II Final Preanesthetic Review: No Changes in Pt Med Stat, Meds/Allgs Chart Reviewed, Consent Obtained/Reviewed and Anes Risks/Benef Reviewed Patient Risk: Low Procedure Risk: Low Assessment/Block/Sedation in SS: Assess/Block/Sedation-SS Anesthetic Plan Anesthetic Plan: GA Disposition: Standard PACU
[2021-03-23 10:32] VITALS: BP 179/91; PULSE 97; RESP 16; TEMP 36.5; O2SAT 100
[2021-03-23 10:37] VITALS: BP 179/93; PULSE 96; RESP 18; O2SAT 96
[2021-03-23 10:42] VITALS: BP 162/96; PULSE 98; RESP 16; O2SAT 94
[2021-03-23 10:47] VITALS: BP 164/90; PULSE 97; RESP 18; O2SAT 97
[2021-03-23 10:57] VITALS: BP 150/88; PULSE 98; RESP 18; TEMP 36.7; O2SAT 97
== END 2021-03-23 12:15 | disposition home or self-care (01) ==
PROVIDERS: PCP Pediatrics; Visit Provider Orthopaedic Surgery
PROC: (CPT 25270; principal; 2021-03-23 07:30)
DX: S66.821A Laceration of other specified muscles, fascia and tendons at wrist and hand level, right hand, initial encounter (principal); S66.221A Laceration of extensor muscle, fascia and tendon of right thumb at wrist and hand level, initial encounter; S61.511A Laceration without foreign body of right wrist, initial encounter; S64.21XA Injury of radial nerve at wrist and hand level of right arm, initial encounter; W25.XXXA Contact with sharp glass, initial encounter; Y93.89 Activity, other specified; Y92.9 Unspecified place or not applicable; Y99.8 Other external cause status
CPT/HCPCS: 25270 ×2; 64831; J0690; J1100; J1170; J2250; J2405; J3010

== ENCOUNTER → 2021-04-06 12:23 | Outpatient (BNVA) | payer OTHER, SELFPAY | PROVIDERS: Visit Provider Physician Assistant ==

== ENCOUNTER 2021-05-18 11:00 | Outpatient (RCR) | payer OTHER, SELFPAY ==
--- NOTE | 2021-04-14 15:27 | MHC.OT.OEV ---
[address] [phone] F: [phone] Occupational Therapy Evaluation Diagnosis: Wrist laceration; Post-op repair of APL, EPB and superficial radial nerve at Zone VII Date of Onset: 03/21/21 Date of Surgery: 03/23/21 Attending Provider: Dr Butler Prescribed Treatment: Eval and Treat, custom orthosis and tendon gliding exercises MD Follow Up Appointment: History of Current Condition: 20 yo male was playing [employer], went to stand up and put his hand through a window, resulting in 3 cm wrist laceration. He was seen in ED early that morning, received stitches in the ED and referred to ortho for further assessment. Now post-op repair of EPB, APL and superficial radial nerve. Significant Medical History: Precautions/Contraindications: 3 weeks post-op Zone VII ext tendon repair Patient Goals: Hand Dominance: Left Observations: Post-op dressing QuickDASH Score: Prior Level of Function and Occupation Self Care, Employment, Leisure: Enjoys spending time w/ friends, plays lacrosse Does lanscaping Living Situation, Family and/or Social Support: Lives with his mom Current Level of Function and Occupation Self Care, Employment, Leisure: Out of work since injury Doing most activities w/ dominant left hand Sleep: Driving: Still driving Vision: Balance: Pain Assessment Pain Score: Pain Scale Used: Pain Location and Description: Pain free at rest in radial wrist and thumb Aggravating Factors: Alleviating Factors: Skin and Soft Tissue Assessment Skin and Soft Tissue: Comments: Three surgical incisions clean, intact steri strips Sensory Assessment : Pt reports burning and slightly impaired sensation in thumb tip Edema Assessment Upper Extremity: Comments: Mild/mod edema through thumb, hand and wrist Dexterity Assessment Dexterity: Right Impaired AROM(PROM) Strength Thumb Thumb CMC Flexion: Thumb MCP Flexion: Thumb IP Flexion: Radial Abduction: Palmar Abduction: [place] ([place] 0-10): Comments: Full thumb to full passive extension, active flex sub maximal for protection Patient Education Primary Language: Estonian Reel System Operator Required: No Current Knowledge: Understands information with skills for self-management Teaching Method: Demonstration Handouts Verbal Education Needs Identified on Evaluation: ADL's Disease Information Equipment Use Exercise Pain Safety How did patient/family demonstrate learning? Patient demonstrates Patient verbalizes Family/SO demonstrates Family/SO verbalizes Barriers to Learning: None Readiness for Learning: Accepting Who was educated? Patient Family/other Comments: Pt attends appt w/ mother, both engaged in education, pleasant Plan of Care Assessment: 20 yo male presents 3 weeks post-op Zone T5 tendon repair of APL and EPB w/ superficial radial nerve involvement following radial wrist laceration. He presents w/ post-op dressing, sutures have been removed, three surgical incisions clean, dry and steri strips intact. We will continue OT for splinting and progression of tendon repair protocol. STG Duration: 1 wk Short Term Goals: Ind w/ scar management Ind w/ orthosis management Pt to maintain thumb ext w/ place and hold LTG Duration: 5 weeks R D Engineer Goals: Full active thumb flex and ext Initiate PREs Good participation in self care w/ light bimanual tasks Frequency and Duration: The patient will be seen 2x/wk for 5-6 weeks Treatment Plan: Therapeutic Exercise Therapeutic Activity Home Exercise Program Splinting Neuro Re-ed Patient Education Desensitization/Sensory Re-ed Edema Control ADL Training Ultrasound NMES Paraffin Fluidotherapy MHP Cold Packs Soft Tissue Mobilization Kinesiotaping Paper tape for scar management Pt has been placed in volar orthosis, wrist 30 degrees, MP ext w/ oval 8 for IP ext Electronically Signed By: Bing Hawkins OTR/Anthony Reviewed/agree with student documentation: N/A Therapist: Please sign and return to therapist, Thank you for your referral.
--- NOTE | 2021-05-18 11:16 | MHC.OT.DC ---
[address] [phone] F: [phone] Occupational Therapy Discharge Note Provider: Dr Butler Diagnosis: Wrist laceration; Post-op repair of APL, EPB and superficial radial nerve at Zone VII Date of Surgery: 03/23/21 Date of Evaluation: 04/14/21 Date of Discharge: 05/18/21 Treatments to Date: 4 Discharge Status: Achieved Goals Improved Function Independent with HEP Discharge Summary: 20 yo male now 8 weeks post-op Zone T5 tendon repair of APL and EPB w/ superficial radial nerve involvement following radial wrist laceration. Thumb and wrist ROM WNL at this time, good tendon pull through, mild adhesions noted w/ scar mobilization. All goal met and pt reports he is back to full activity. Electronically Signed By: JOSE Parikh/Anthony Reviewed/agree with student documentation: N/A Therapist: Please Sign and return to therapist, thank you for your referral.
== END 2021-05-18 11:21 | disposition home or self-care (01) ==
LOC: HO.OT 11:00
PROVIDERS: PCP Pediatrics; Visit Provider Physician Assistant
DX: S66.921D Laceration of unspecified muscle, fascia and tendon at wrist and hand level, right hand, subsequent encounter (principal); S61.501D Unspecified open wound of right wrist, subsequent encounter
CPT/HCPCS: 29125; 97110; 97140; 97166; 97760

== ENCOUNTER 2023-03-24 02:06 | Emergency (ER) | payer OTHER, SELFPAY ==
[2023-03-24 02:10] VITALS: BP 164/92; PULSE 65; O2SAT 100
[2023-03-24 02:13] VITALS: BP 136/106; PULSE 60; RESP 18; TEMP 36.4; O2SAT 96; BMI 35.1
--- NOTE | 2023-03-24 03:55 | PC.NURSE ---
pt aox4 no apparent distress, resting quietly resting on R side lower back pain radiates down to L leg s/o at bedside
--- NOTE | 2023-03-24 04:30 | ED.BACK ---
HPI - Back Pain/Injury General Chief Complaint: Back Pain/Injury Stated Complaint: lower back pain Time Seen by Provider: 03/24/23 03:51 Source: patient and family Mode of arrival: EMS History of Present Illness HPI Narrative: 22-year-old male who presents with acute on chronic back pain not associated with fever, chills, bowel or bladder dysfunction but reports that he has significant underlying back issues that required back surgery, patient sees a neurosurgeon through the [facility] system and denies any traumatic injury prior to the onset of this worsening back pain since Saturday. Patient also reports some pain and tingling extending into bilateral buttocks. Related Data Previous Rx's Medication Instructions Recorded amoxicillin 875 mg-potassium 1 tab PO Q12H 5 days #10 tabs 03/21/21 clavulanate 125 mg tablet (Augmentin) hydrocodone 5 mg-acetaminophen 325 1 - 2 tab PO Q6H PRN pain #20 tabs 03/23/21 mg tablet ketorolac 10 mg tablet 10 mg PO Q6H PRN pain 5 days #20 03/24/23 tabs oxycodone 5 mg capsule 5 mg PO Q8H PRN breakthrough pain, 03/24/23 severe #7 caps Allergies Allergy/AdvReac Type Severity Reaction Status Date / Time No Known Allergies Allergy Verified 03/24/23 02:16 Review of Systems Review of Systems: Pertinent positives and negatives as stated in HPI [facility] Past Medical History Source: nursing notes reviewed Medical History Compressed cervical disc Lumbar disc prolapse with root compression Narrowing of lumbar spine Stenosis of lumbosacral spine Social History Social History Household Members: Family Housing: House Do you presently have visiting nurse or other home services: No Alcohol intake: never Patient Tobacco Use Status: Never used Tobacco Advance Directives: No Advance Directives Information Provided: Yes service: No Current occupational status: employed 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 GENERAL: Well developed, well nourished, in no acute distress. HEAD: Normocephalic/atraumatic EYES: PERRLA, EOMI EARS: Ext canals without abnormality NOSE: Nares patent bilateral OROPHARYNX: no oral lesions noted, posterior pharynx clear NECK: Supple, no adenopathy LUNGS: Normal breath sounds. No adventitious sounds or accessory muscle use. SpO2<96> CARDIOVASCULAR: Regular rate and rhythm without noted murmurs ABDOMEN: Soft, non-tender, non-distended with bowel sounds. MUSCULOSKELETAL: No tenderness, deformities, or effusions noted on gross inspection. EXTREMITIES: No cyanosis, clubbing or edema. SKIN: Inspection of the skin reveals no rashes NEUROLOGIC: Alert and oriented x 4. Strength and sensation to light touch were grossly intact x 4, DTRs intact. Medications Administered Discontinued Medications Generic Name Dose Route Start Last Admin Trade Name Freq PRN Reason Stop Dose Admin Acetaminophen 975 mg 03/24/23 02:18 03/24/23 02:20 Acetaminophen 325 Mg Tablet PO 03/24/23 02:19 975 mg ONCE ONE Administration Ibuprofen 600 mg 03/24/23 02:17 03/24/23 02:20 Ibuprofen 600 Mg Tablet PO 03/24/23 02:18 600 mg ONCE ONE Administration Medical Decision Making Medical Decision Making [facility] Narrative: 22-year-old male with history and clinical presentation consistent with acute on chronic back pain and radicular symptoms, no suspicion of cauda equina or spinal abscess. Patient will receive combination analgesics as well as a lidocaine patch and 5 mg of oxycodone. Patient does have good outpatient follow-up with his neurosurgeon which he was strongly encouraged to follow-up with on Saturday morning. Patient has pending MRI as well as physical therapy. Differential Diagnosis Please see the discussion above External Record Review External record reviewed: Prior outpatient labs Discharge Plan Discharge Clinical Impression: Acute exacerbation of chronic low back pain, Spinal stenosis of lumbar region Patient Disposition: Home, Self-Care Instructions: Back Pain (ED), Opioid Safety (ED) Additional Instructions: 1. Tylenol 1000 mg, orally, every 6 hours as needed for pain control. Do not exceed 4000 mg within 24 hours. 2. Lidocaine patch to the area of maximal tenderness as directed on the outside packaging. 3. Please continue to stretch as much as possible. Return to the ED if you experience any fever, chills, loss of bowel or bladder function. Prescriptions: New ketorolac 10 mg tablet 10 mg PO Q6H PRN (Reason: pain) 5 Days Qty: 20 0RF Rx Instructions: Patient received Toradol in the emergency room. oxycodone 5 mg capsule 5 mg PO Q8H PRN (Reason: breakthrough pain, severe) Qty: 7 0RF Rx Instructions: Partial Fill upon patient request. No Action hydrocodone-acetaminophen 5-325 mg tablet 1 - 2 tab PO Q6H PRN (Reason: pain) Qty: 20 0RF amoxicillin-pot clavulanate [Augmentin] 875-125 mg tablet 1 tab PO Q12H 5 Days Qty: 10 0RF Referrals: Hira Blum MD [Primary Care Provider] -
[2023-03-24 05:21] VITALS: BP 138/92; PULSE 62; RESP 18; TEMP 36.6; O2SAT 97
--- NOTE | 2023-03-24 05:25 | PC.NURSE ---
Discharge instructions given and explained to pt No apparent distress alert and oriented all of pt's questions answered w/c to car steady gait, slow
== END 2023-03-24 05:26 | disposition home or self-care (01) ==
PROVIDERS: Emergency Provider Student in an Organized Health Care Education/Training Program; PCP Pediatrics
DX: M54.50 Low back pain, unspecified (principal); Z79.899 Other long term (current) drug therapy
CPT/HCPCS: 96372; 99284; J1885

== ENCOUNTER 2023-03-26 07:15 | Outpatient (REF) | payer OTHER, SELFPAY ==
--- NOTE | ~2023-03-26 | MR_ITS ---
EXAMINATION: MR LUMBAR SPINE WITHOUT AND WITH CONTRAST CLINICAL INFORMATION: History of prior surgery. Left leg radiculopathy and low back pain. COMPARISON: MRI dated 10/22/2020. TECHNIQUE: Multiplanar, multisequence imaging was obtained. Intravenous contrast: Gadavist 10 mL. FINDINGS: VERTEBRAL BODIES AND PARASPINAL STRUCTURES: The marrow signal is within normal limits. There are no compression fractures. Congenital narrowing of the lumbar spinal canal again evident with foreshortening of the pedicles. Reduced intradiscal signal and mild loss of disc height again visible at the L3-L4, L4-L5, and L5-S1 levels. There are chronic postlaminectomy changes at the L4-L5 and L5-S1 levels on the right side. CONUS MEDULLARIS AND CAUDA EQUINE: The distal cord, conus tip, and cauda equina nerve roots are normal. No pathologic intradural enhancement identified. SPINAL LEVELS: L1-L2: No disc pathology, central canal stenosis, or foraminal narrowing. L2-L3: No disc abnormality. Mild facet arthropathy slightly encroaching upon the central canal. No foraminal narrowing. L3-L4: Disc degeneration and central to right subarticular zone disc protrusion with an underlying annular fissure, slightly worsened compared to prior imaging. Findings result in mass effect upon the thecal sac and right L4 nerve root. Hypertrophic facet arthropathy is stable and contributes to moderate central canal stenosis. L4-L5: Postoperative changes with a recurrent broad-based central disc protrusion compressing the thecal sac and L5 nerve roots in the subarticular zones. Postlaminectomy changes and hypertrophic facet arthropathy again evident with central canal stenosis. Moderate right foraminal narrowing and milder left foraminal bulging disc. L5-S1: Disc degeneration and recurrent broad-based central disc protrusion, increased in size compared to previous imaging. The disc protrusion moderately compresses the thecal sac and results in significant mass effect upon both S1 nerve roots. Soft tissue enhancement in the epidural space presumably represents granulation tissue/scar. Stable facet arthropathy and [id number] foraminal narrowing, worse on the right side. MR/MR lumbar spine wo/w con IMPRESSION: 1. Slightly worsened central to right subarticular zone disc protrusion with an underlying annular tear at the L3-L4 level resulting in mass effect upon the thecal sac and right L4 nerve root. Moderate central canal stenosis. 2. Postoperative changes at the L4-L5 level with a recurrent broad-based central disc protrusion compressing the thecal sac and L5 nerve roots. Postlaminectomy changes and facet arthropathy with central canal stenosis, improved from the previous study. Moderate right foraminal narrowing. 3. Recurrent broad-based central disc protrusion at the L5-S1 level with worsened moderate thecal sac compression and significant mass effect upon both S1 nerve roots.
== END 2023-03-26 07:16 | disposition home or self-care (01) ==
LOC: HO.MRI 07:15
PROVIDERS: Visit Provider Neurological Surgery
DX: M54.16 Radiculopathy, lumbar region (principal)
CPT/HCPCS: 72158; A9585

== ENCOUNTER 2023-07-09 14:00 | Outpatient (RCR) | payer OTHER, SELFPAY | END 2023-08-05 10:51 | disposition home or self-care (01) | LOC: HO.PT 14:00 | PROVIDERS: PCP Pediatrics; Visit Provider Neurological Surgery | DX: M54.16 Radiculopathy, lumbar region (principal) | CPT/HCPCS: 97110; 97140; 97162; 97530 ==

== ENCOUNTER 2024-02-24 15:21 | Outpatient (AMB) | payer OTHER, SELFPAY ==
--- NOTE | 2024-02-24 15:25 | MHC.OFFWIV ---
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 He states 3 days ago, he was walking down the front steps of his house when he was at the 2nd to last step and misstepped, falling down the last 2 steps and twisting his left ankle. He was able to ambulate a few steps, although gingerly as it was painful. Since then he has been applying ice, trying to rest it and taking Motrin. He states that today at work, he rolled his ankle again while walking. He endorses more pain and swelling. Patient showed me the ring video, which shows exactly as he described, did not appear he hit his head or lost consciousness. 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 Review of Systems Const All systems reviewed & are unremarkable except as noted in HPI and below Physical Exam Vital Signs: Last Vital Signs Pulse 77 02/24/24 15:26 BP 144/80 H 02/24/24 15:26 Pulse Ox 98 02/24/24 15:26 Const General: cooperative, healthy appearing, comfortable, no acute distress and well developed Orientation/consciousness: patient oriented x3 Limitations: no limitations HEENT Head: Yes normal to inspection Eyes General: appearance normal, both eyes and all related structures Neck Neck: Yes normal visual inspection and Yes full ROM Skin General skin exam: no rashes or lesions noted Neuro General: patient oriented x3 Extrem General: Yes normal to inspection Right lower extremity: normal to inspection and full ROM Left lower extremity: ankle Details: tenderness (At the base of the 5th metatarsal and navicular bone, No TTP lateral or medial malleolus), pitting edema (Ankle joint and foot), abnormal ROM Details: pain with active ROM and with range as follows (Limited due to pain); no pain with passive ROM and ecchymosis (foot) medial ; no warmth, no abrasions and no lacerations Results Reviewed Results Reviewed: FINDINGS: There is a avulsion fracture on the dorsum of the calcaneus. The ankle and foot appear otherwise unremarkable. XR/XR foot LT min 3V IMPRESSION: Avulsion fracture on the dorsum of the calcaneus Assessment & Plan Assessment & Plan (1) Fall down stairs: Code(s): W10.8XXA - Fall (on) (from) other stairs and steps, initial encounter Qualifiers: Encounter type: initial encounter Qualified Code(s): W10.8XXA - Fall (on) (from) other stairs and steps, initial encounter Plan: See below (2) Foot pain, left: Code(s): M79.672 - Pain in left foot Plan: See below (3) Ankle pain, left: Code(s): M25.572 - Pain in left ankle and joints of left foot Qualifiers: Chronicity: acute Qualified Code(s): M25.572 - Pain in left ankle and joints of left foot Plan: See below Plan Applied Gus bandage, recommended RICE. As per [place] [place] [facility] Rules, sent for x-ray of left ankle and foot, advised follow-up with orthopedics if no improvement in the coming days to weeks. And has fracture, called him to let him know. Advised can come in and brain picker a boot if it is more comfortable for him to ambulate with. Also I will send a referral to Orthopedics but if it is healing well and he is feeling good, he can cancel that appointment. FINDINGS: There is a avulsion fracture on the dorsum of the calcaneus. The ankle and foot appear otherwise unremarkable. XR/XR foot LT min 3V IMPRESSION: Avulsion fracture on the dorsum of the calcaneus. Orders: Orders XR foot LT min 3V 02/24/24 M25.572 - Pain in left ankle and joints of left foot, M79.672 - Pain in left foot, W10.8XXA - Fall (on) (from) other stairs and steps, initial encounter Referrals Orthopedics Referral S92.009A - Unspecified fracture of unspecified calcaneus, initial encounter for closed fracture Coding Level of Care Code New Pt Level 4 (51978) Diagnoses Fall down stairs, initial encounter W10.8XXA Encounter type: initial encounter Foot pain, left M79.672 Acute left ankle pain M25.572 Chronicity: acute
[2024-02-24 15:26] VITALS: BP 144/80; PULSE 77; O2SAT 98
== END 2024-02-24 16:17 | disposition home or self-care (01) ==
PROVIDERS: PCP Pediatrics; Visit Provider Physician Assistant
DX: M79.672 Pain in left foot (principal); W10.8XXA Fall (on) (from) other stairs and steps, initial encounter; M25.572 Pain in left ankle and joints of left foot
CPT/HCPCS: 99204

== ENCOUNTER 2024-02-24 15:44 | Outpatient (REF) | payer OTHER, SELFPAY ==
--- NOTE | ~2024-02-24 | XR_ITS ---
EXAMINATION: LEFT ANKLE, LEFT FOOT CLINICAL INFORMATION: Fall on steps COMPARISON: None available. TECHNIQUE: 3 views left ankle, 3 views left foot FINDINGS: There is a avulsion fracture on the dorsum of the calcaneus. The ankle and foot appear otherwise unremarkable. XR/XR ankle LT 2V IMPRESSION: Avulsion fracture on the dorsum of the calcaneus.
--- NOTE | ~2024-02-24 | XR_ITS ---
EXAMINATION: LEFT ANKLE, LEFT FOOT CLINICAL INFORMATION: Fall on steps COMPARISON: None available. TECHNIQUE: 3 views left ankle, 3 views left foot FINDINGS: There is a avulsion fracture on the dorsum of the calcaneus. The ankle and foot appear otherwise unremarkable. XR/XR foot LT min 3V IMPRESSION: Avulsion fracture on the dorsum of the calcaneus.
== END 2024-02-24 15:45 | disposition home or self-care (01) ==
LOC: HO.HMGCX 15:44
PROVIDERS: PCP Nurse Practitioner Family; Visit Provider Physician Assistant
DX: M79.672 Pain in left foot (principal); M25.572 Pain in left ankle and joints of left foot; W10.8XXA Fall (on) (from) other stairs and steps, initial encounter
CPT/HCPCS: 73600; 73630

== ENCOUNTER 2024-03-13 08:17 | Outpatient (AMB) | payer OTHER, SELFPAY ==
--- NOTE | 2024-03-13 08:21 | MHC.OFFVIS ---
Intake Visit Reasons: FC - LT foot/ankle fx, DOI 02/21/24 Intake Note: Hiram is a 23 year old male who presents today for a evaluation of his left ankle fx, DOI 02/21/24. Patient reports he was walking down the front steps of his house when he was at the 2nd to last step and missed it. He fell down the last 2 steps and twisted his left ankle. Currently he is having some pain of the top of his foot and the lateral aspect of the foot. Denies numbness and tingling. Allergies No Known Allergies Allergy (Verified 03/13/24 08:24) HPI HPI FC - LT foot/ankle fx, DOI 02/21/24: Details: 23-year-old male who presents in the office today, as a new patient, for an evaluation of left ankle pain. The patient presented to the Walk-In clinic on 02/24/2024 status post a fall while going down the steps at home on 02/21/2024. He states he missed the second to last step causing him to twist his left ankle. The patient reports a second injury to the left ankle while at work on 02/24/2024 when the left ankle ?rolled? while ambulating. X-rays of the left ankle and foot were obtained. He was placed in an TO wrap. After discharge the patient was called and offered a walking boot, however, the Walk-In Clinic note does not state if he returned for the boot. ? ? While in the office today, the patient reports he was ambulating down the front steps of his house when he missed the second to last one causing him to fall and twist his left ankle. He claims to have mild pain on the top and along the lateral aspect of the left foot. He denies numbness or tingling. ? 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 No ecchymosis and erythema. Moderate edema located over the dorsal lateral aspect of the talus at the avulsion site accompanied by tenderness to palpation. Patient is able to demonstrate dorsiflexion and plantar flexion. Reports stiffness with pronation and supination. Negative anterior drawer. Sensation intact. Pedal Pulse intact.? ? Assessment & Plan Assessment & Plan (1) Avulsion fracture of talus: Code(s): S92.153A - Displaced avulsion fracture (chip fracture) of unspecified talus, initial encounter for closed fracture Category: Medical Plan Mr. Faust is a 23-year-old male who presents in the office today, as a new patient, for an evaluation of left ankle pain. The patient presented to the Walk-In clinic on 02/24/2024 status post a fall while going down the steps at home on 02/21/2024. He states he missed the second to last step causing him to twist his left ankle. The patient reports a second injury to the left ankle while at work on 02/24/2024 when the left ankle ?rolled? while ambulating. X-rays of the left ankle and foot were obtained. He was placed in an TO wrap. After discharge the patient was called and offered a walking boot, however, the Walk-In Clinic note does not state if he returned for the boot. ? ? While in the office today, the patient reports he was ambulating down the front steps of his house when he missed the second to last one causing him to fall and twist his left ankle. He claims to have mild pain on the top and along the lateral aspect of the left foot. He denies numbness or tingling.? ? ? The patient will continue to wear the walking boot at this time, with a goal of weaning out of the boot into a supportive sneaker in the next two weeks. A referral to physical therapy was made. Follow-up will be in four to six weeks, or sooner if needed. ? ? X-rays of the left ankle, obtained on 02/24/2024, revealed:? Avulsion fracture on the dorsum of the talus.? Orders: Orders PT Evaluation and Treatment Today S92.153A - Displaced avulsion fracture (chip fracture) of unspecified talus, initial encounter for closed fracture Patient Instructions: Scribed by Nereyda Phillip medical records tech, for Serena Enriquez PA-C on 03/13/2024 at 8:22 am, EST.? Coding Level of Care Code New Pt Level 4 (36115) Diagnoses Avulsion fracture of talus S92.153A
== END 2024-03-13 08:34 | disposition home or self-care (01) ==
PROVIDERS: PCP Nurse Practitioner Family; Visit Provider Physician Assistant
DX: S92.152A Displaced avulsion fracture (chip fracture) of left talus, initial encounter for closed fracture (principal)
CPT/HCPCS: 99203

== ENCOUNTER → 2024-03-13 08:17 | Outpatient (BNVA) | payer OTHER, SELFPAY | PROVIDERS: PCP Nurse Practitioner Family; Visit Provider Physician Assistant ==

== ENCOUNTER 2024-04-16 08:52 | Outpatient (AMB) | payer OTHER, SELFPAY ==
--- NOTE | 2024-04-16 08:59 | MHC.OFFVIS ---
Vital Signs 04/16/24 09:03 Height 5 ft 11 in Intake Visit Reasons: OV - left talus fx, DOI 02/21/24 Intake Note: Hiram is a 23 year old male who presents today for a evaluation of his left talus fx, DOI 02/21/24. Patient reports he is doing well, he has some discomfort on the lateral aspect of the foot. He mention that he has been working with PT and he is seeing improvements. Allergies No Known Allergies Allergy (Verified 04/16/24 09:03) HPI HPI OV - left talus fx, DOI 02/21/24: Details: 23-year-old male who presents in the office today for a follow-up of a left ankle avulsion fracture of the talus, which occurred on 02/21/24 when he fell going down the stairs. I last saw the patient in the office on 03/13/24 when he was to continue to wear the walking boot for two additional weeks then to wean into a supportive sneaker. He was also referred to physical therapy. ? ? While in the office today, the patient reports he is doing well. He states he has mild discomfort on the lateral aspect of the left foot. He confirms attending physical therapy and is noticing improvement. ? 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 No ecchymosis, erythema, or edema. Slight tenderness to palpation along the lateral aspect of the left foot.?Patient is able to demonstrate dorsiflexion, plantar flexion, pronation and supination. Negative anterior drawer. Sensation intact. Pedal Pulse intact.? ? Assessment & Plan Assessment & Plan (1) Avulsion fracture of talus: Code(s): S92.153A - Displaced avulsion fracture (chip fracture) of unspecified talus, initial encounter for closed fracture Category: Medical Plan Mr. Faust is a 23-year-old male who presents in the office today for a follow-up of a left ankle avulsion fracture of the talus, which occurred on 02/21/24 when he fell going down the stairs. I last saw the patient in the office on 03/13/24 when he was to continue to wear the walking boot for two additional weeks then to wean into a supportive sneaker. He was also referred to physical therapy. ? ? While in the office today, the patient reports he is doing well. He states he has mild discomfort on the lateral aspect of the left foot. He confirms attending physical therapy and is noticing improvement.? ? The patient may discontinue the use of the boot and transition into a supportive sneaker. He will continue physical therapy until all sessions are completed, which will be on 04/30/24. He may return to work full-time, regular duty on 05/04/24. Follow-up will be PRN, or sooner if needed. ? X-rays of the left ankle which were obtained while in the office today and were reviewed by me, Serena Enriquez PA-C, revealed routine healing of a left avulsion fracture. ? Orders: Orders XR foot LT min 3V Today M79.673 - Pain in unspecified foot Patient Instructions: Scribed by Nereyda Phillip medical records manager, for Serena Enriquez PA-C on 04/16/2024 at 9:00 am, EST.? Coding Level of Care Code Est Pt Level 3 (53845) Diagnoses Avulsion fracture of talus S92.153A
== END 2024-04-16 09:19 | disposition home or self-care (01) ==
PROVIDERS: PCP Nurse Practitioner Family; Visit Provider Physician Assistant
DX: S92.152D Displaced avulsion fracture (chip fracture) of left talus, subsequent encounter for fracture with routine healing (principal)
CPT/HCPCS: 99213

== ENCOUNTER 2024-04-16 12:18 | Outpatient (REF) | payer OTHER, SELFPAY ==
--- NOTE | ~2024-04-16 | XR_ITS ---
EXAMINATION: XR FOOT, LEFT CLINICAL INFORMATION: Pain. COMPARISON: 02/24/2024. TECHNIQUE: AP, lateral, and oblique views of the left foot. FINDINGS: Previously noted avulsion fracture on the dorsum of the calcaneus is less conspicuous, possibly more closely opposed to the talus. Bone mineralization is normal. Joint spaces are preserved. Small calcification medial to the first proximal phalanx distally with focal soft tissue prominence redemonstrated. XR/XR foot LT min 3V IMPRESSION: Previously noted avulsion fracture on the dorsum of the calcaneus is less conspicuous, possibly more closely opposed to the talus.
== END 2024-04-16 12:19 | disposition home or self-care (01) ==
LOC: HO.HOSX 12:18
PROVIDERS: Visit Provider Physician Assistant
DX: M79.672 Pain in left foot (principal)
CPT/HCPCS: 73630

== ENCOUNTER 2024-05-07 10:00 | Outpatient (RCR) | payer OTHER, SELFPAY ==
--- NOTE | 2024-04-08 13:27 | MHC.PT.EP ---
[facility] [place] Office [place] Office [place] Office [address] Mery Basilio [address] [phone] F: [phone] F: [phone] F: [phone] F: [phone] Physical Therapy Plan of Care Date of Evaluation: 04/08/24 Date of Surgery: Diagnosis: DISPLACED AVULSION FX Lt TALUS-> ROM, WEAN OUT OF BOOT IN 2 WKS Assessment: 23 YO MALE REF TO PT W H/O FALLING ON STAIRS AND SUFFERING A DISPLACED AVULSION FX OF Lt LAT TALUS ON 02/21/24- HE HAS BEEN IN A WALKING BOOT Lt LE SINCE. VENU HAD AN ORTHO CONSULT ON 03/13/24 AND IS REF TO PT, WITH ORDERS FOR ROMAND BOOT WEAN. 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 OBJECTIVE FINDINGS: LIMITED ROM Lt ANKLE, DECR FLEXIBILITY IN POSTERIOR CHAIN/HS, Lt DISTAL LE WEAKNESS DUE TO RECENT IMMOBILITY IN BOOT, LIMITED SLS , AND FLUCTUATING DISCOMFORT IN Lt LATERAL ANTEROINF MALL. THE Pt IS MOTIVATED FOR PT AND AGREES W HIS POC, ULITIMATE GOAL OF RTW/REG ADLs. Frequency and Duration: The patient will be seen 2 x WK x 6 WKS Short Term Goals: *DECR Lt LATERAL ANKLE/ HEEL PAIN *INITIATE HEP *IMPROVE LEs FLEXIB/ ANKLE AROM *DECR EDEMA Lt ANKLE/HEEL-> WEAN LEFT BOOT Fpc Goals: *INDEP HEP AND SELF SX MGMT *EFFICIENT GAIT ON ALL SURFACES *Pt RESUME REG ADLs/ WORK TASKS W/O EXACERB Lt ANKLE-> IMPROVED LEFI ( AT EVAL 36/80) Treatment Plan: Modalities to reduce pain, spasms and effusion. Manual therapy to restore motion and function. Therapeutic exercise to improve strength and flexibility. Neuromuscular re-education for posture and balance. Therapeutic activities to return to functional activities of daily living. Electronically signed by: RHEA SNIDER,PT Please sign and return to therapist. Thank you for your referral.
--- NOTE | 2024-05-12 14:09 | MHC.PT.DC ---
[facility] [place] Office [place] Office [place] Office [address] Mery Basilio [address] [phone] F: [phone] F: [phone] F: [phone] F: [phone] Physical Therapy Discharge Report Diagnosis: DISPLACED AVULSION FX Lt TALUS-> ROM, WEAN OUT OF BOOT IN 2 WKS Date of Surgery: Date of Evaluation: 04/08/24 Date of Discharge: 05/12/24 Treatments to Date: 9 Cancellations to Date: 0 No Shows to Date: 0 Discharge Status: Achieved Goals Improved Function Independent with HEP Discharge Summary: VENU PROGRESSED VERY WELL IN PT- HE MET HIS GOALS AND IS INDEP W HEP. HE HAD SIGNIF PROGRESS NOTED IN HIS LEFI SCORE : AT EVAL: 36/80 AND AT D/C : 77/80. VENU DENIES PAIN OR INSTABILITY IN HIS Lt ANKLE AND HE AGREES WITH DISCHARGE AT THIS TIME. Electronically signed by: RHEA SNIDER,PT Please sign and return to therapist. Thank you for your referral.
== END 2024-05-12 14:09 | disposition home or self-care (01) ==
LOC: HO.PT 10:00
PROVIDERS: PCP Nurse Practitioner Family; Visit Provider Physician Assistant
DX: S92.152D Displaced avulsion fracture (chip fracture) of left talus, subsequent encounter for fracture with routine healing (principal)
CPT/HCPCS: 97110; 97112; 97162; 97530; 97535

== ENCOUNTER 2024-07-08 12:02 | Outpatient (AMB) | payer OTHER, SELFPAY ==
--- NOTE | 2024-07-08 12:20 | A.OFFPC_ITS ---
Vital Signs 07/08/24 12:25 07/08/24 13:34 07/08/24 13:34 Height 5 ft 11 in Weight 258 lb BMI 36.0 BP 142/80 H 130/80 130/80 Blood Pressure Location Rt brachial Rt brachial Position Sitting Sitting Pulse 93 Pulse Source Pulse Oximeter Pulse Oximetry (%) 96 Intake Visit Reasons: Rescheduled appt Transfer from [facility] Note: pt is here to [facility], transferred from [facility] Inspector Balance Wheel Motion Required: No Accompanied by: Self / Same As Patient Allergies No Known Allergies Allergy (Verified 07/08/24 12:49) Medication List - Last Reconciled 07/08/24 by ANISH Vasques No Known Home Meds Tobacco use date assessed: 07/08/24 Dental Screening Dental Screen Date: 07/08/24 Did you have a dental visit in the last 12 months?: Yes Did you have a dental problem in the last 6 months where you did not have access to dental care?: No Was dental information given to patient?: Patient has dentist HPI Rescheduled appt Transfer from [facility] HPI Details New pt is here for a PE. Will order labs. Pt has a hx of L3-4, L4-5, and L5-S1 microdiscectomies in 2020. He is seeing neurosurgery and has a repeat MRI scheduled. Pt does report pain and numbness/tingling down his LLE. Denies any signs of cauda equina. 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 1. Little interest or pleasure in doing things: not at all 2. Feeling down, depressed, or hopeless: not at all 3. Trouble falling or staying asleep, or sleeping too much: not at all 4. Feeling tired or having little energy: several days 5. Poor appetite or overeating: not at all 6. Feeling bad about yourself - or that you are a failure or have let yourself or your family down: not at all 7. Trouble concentrating on things, such as reading the newspaper or watching television: not at all 8. Moving or speaking so slowly that other people could have noticed. Or the opposite - being so fidgety or restless that you have been moving around a lot more than usual: not at all 9. Thoughts that you would be better off or of hurting yourself in some way: not at all Total score: 1 Depression Screening Interpretation: Negative Depression Screening Done: Yes 10205 - PHQ-9 Billing: Yes Source: Developed by Drs. Yoni Jackson, Cielo Leiva, Chapin Liang and colleagues, with an educational maia from [employer]. Thrive Questionnaire Date Thrive assessed: 07/08/24 I am a: Patient What is your living situation today?: I have a steady place to live Within the past 12 months, did the food you bought not last and you didn't have the money to get more?: Never true Within the past 12 months, did you worry whether your food would run out before you got money to buy more?: Never true Do you have trouble paying for medicines?: No Do you have trouble getting transportation to medical appointments?: No Do you have trouble paying your heating and electricity bill?: No Do you have trouble taking care of your child, family member or friend?: No Do you have trouble with day-to-day activities such as bathing, preparing meals, shopping, managing finances, etc.?: No Are you currently unemployed and looking for a job?: No Are you interested in more education?: No Please select the resources that you would like help with: None Currently or been in a relationship where the following occur: No concerns reported THRIVE Score: 0 AUDIT C Alcohol Use Questionnaire (AUDIT-C) 1. How often do you have a drink containing alcohol?: 2-4 times a month 2. How many drinks containing alcohol do you have on a typical day when you are drinking?: 3 or 4 3. How often do you have six or more drinks on one occasion?: Less than monthly Total Score: 4 Score Reviewed/Action Taken: Yes BERTRAM-7 AMB Questionnaire BERTRAM-7 Date BERTRAM - 7 assessed: 07/08/24 Feeling nervous, anxious, or on edge: 1 = Several days Not being able to stop or control worryin = Not at all Worrying too much about different things: 0 = Not at all Trouble relaxin = Not at all Being so restless that it is hard to sit still: 0 = Not at all Becoming easily annoyed or irritable: 1 = Several days Feeling afraid as if something awful might happen: 0 = Not at all Total BERTRAM-7 score (0-4 normal; 5-9 mild; 10-14 moderate; 15-21 severe): 2 Source: Developed by Drs. Yoni Jackson, Cielo Leiva, Chapin Liang and colleagues, with an educational maia from [employer]. BERTRAM-7 Assessment Billing BERTRAM-7 Assessment Tool: BERTRAM-7 Assessment 40337 Review of Systems Const Denies chills and Denies fever(s) Eyes Denies blurry vision ENT Denies vertigo, Denies dizziness and Denies sore throat Card Denies chest pain at rest, Denies chest pain with activity, Denies diaphoresis, Denies dyspnea and Denies dyspnea on exertion Resp Denies cough, Denies dyspnea, Denies dyspnea on exertion and Denies wheezing GI Denies abdominal pain, Denies melena, Denies hematochezia, Denies constipation, Denies diarrhea and Denies loose stools Denies hematuria Musc Reports numbness and Reports tingling Skin/Breast Denies lesions Neuro Denies vertigo, Denies dizziness, Reports numbness and Reports tingling Psych Denies anxiety, Denies depression, Denies homicidal ideation, Denies suicidal ideation and Denies other (substance abuse) Aller/Immun Denies wheezing Physical exam (Primary Care) Vital Signs: Last Vital Signs Pulse 93 07/08/24 12:25 BP 142/80 H 07/08/24 12:25 Pulse Ox 96 07/08/24 12:25 BMI result Body Mass Index 36.0 Tobacco/Smoking Status: Tobacco use Status Tobacco use date assessed 07/08/24 07/08/24 12:26 Patient Tobacco Use Status Never used Tobacco 07/08/24 12:20 PHQ-9: PHQ-9 Score PHQ-9: Total score 1 07/08/24 12:55 Depression Screening Interpretation: Negative Thrive Assessment: Date of Thrive Assessment Date Thrive assessed 07/08/24 07/08/24 12:26 Currently or been in a relationship where the following occur: No concerns reported Const General: cooperative Nutritional Appearance: obese Orientation/consciousness: patient oriented x3 HENMT Head: Yes normal to inspection, Yes normocephalic and Yes atraumatic Ears: TM's normal bilaterally Eyes General: appearance normal, both eyes and all related structures Alignment and Position: alignment normal and position normal Neck Neck: Yes normal visual inspection, Yes no lymphadenopathy and Yes supple Resp Effort & Inspection: normal respiratory effort Auscultation: clear to auscultation bilaterally Cardio Rate: regular rate Rhythm: regular rhythm Heart sounds: S1 normal heart sound present, S2 normal heart sound present and no murmurs GI Palpation (GI): Soft to palpation and nontender Auscultation: normal bowel sounds Male General Exam: Yes normal external exam Penis: normal penis Scrotum: scrotum normal, testes descended bilaterally and no inguinal hernias Testes: no testicular mass Skin Rashes: no rashes Neuro General: patient oriented x3, moves all extremities, no focal motor deficits and deep tendon reflexes 2+ bilaterally Romberg Test: Negative Extrem Other: zero patellar reflexes bilat Psych Appearance: grossly normal Mental Status: mental status grossly normal Speech and movement: Normal speech and movement present Affect: normal affect Attitude: cooperative Thought process: Normal thought process present Thought content: Normal thought content present Insight: Good insight present (Psych) Judgement: Good judgement present (Psych) Coding Level of Care Code New Pt Prev Care 18-39yr(26869 Diagnoses Encounter for routine adult physical exam with abnormal findings Z00.01 Lumbar radiculopathy M54.16 Additional Codes EBRTRAM-7 Assessment Billing - BERTRAM-7 Assessment Tool: BERTRAM-7 Assessment 87799 ([id number]) Assessment & Plan Assessment & Plan (1) Encounter for routine adult physical exam with abnormal findings: Code(s): Z00.01 - Encounter for general adult medical examination with abnormal findings Category: Medical Plan: Labs ordered (2) Lumbar radiculopathy: Code(s): M54.16 - Radiculopathy, lumbar region Category: Medical Plan: following up with GS Plan The patient agreed to the use of a medical staff specialist for this encounter. Scribed for ANISH Guillen by Maryjane Ramos medical staff specialist, on 07/08/2024 at 12:45 EST. Orders: Orders Complete Blood Count Auto Diff Today Z00.01 - Encounter for general adult medical examination with abnormal findings Comprehensive [place]. Panel Fast Today Z00.01 - Encounter for general adult medical examination with abnormal findings UA CC w/rflx Micro + Cult Today Z00.01 - Encounter for general adult medical examination with abnormal findings TSH reflex Free T4 Today Z00.01 - Encounter for general adult medical examination with abnormal findings Lipid Panel Today Z00.01 - Encounter for general adult medical examination with abnormal findings
[2024-07-08 12:25] VITALS: BP 142/80; PULSE 93; O2SAT 96; BMI 36.0
[2024-07-08 13:34] VITALS: BP 130/80
== END 2024-07-08 14:07 | disposition home or self-care (01) ==
PROVIDERS: PCP Nurse Practitioner Family; Visit Provider Nurse Practitioner Family
DX: Z00.01 Encounter for general adult medical examination with abnormal findings (principal); M54.16 Radiculopathy, lumbar region

== ENCOUNTER → 2024-07-08 12:02 | Outpatient (BNVA) | payer OTHER, SELFPAY | PROVIDERS: PCP Nurse Practitioner Family; Visit Provider Nurse Practitioner Family | DX: Z00.01 Encounter for general adult medical examination with abnormal findings (principal); M54.16 Radiculopathy, lumbar region | CPT/HCPCS: 96127 ==

== ENCOUNTER 2024-07-22 08:48 | Outpatient (REF) | payer OTHER, SELFPAY ==
--- NOTE | ~2024-07-22 | MR_ITS ---
EXAMINATION: MR LUMBAR SPINE WITHOUT AND WITH CONTRAST CLINICAL INFORMATION: Radicular symptoms; low back pain radiating down left leg. History of microdiscectomy at L4-5 and L5-S1 in 2022 and 2020. COMPARISON: MRI dated 03/26/2023, and 10/22/2020. TECHNIQUE: Multiplanar multisequence MR imaging of the lumbar spine was done prior to and following the IV administration of 10 mL of Gadavist. Study was performed on a Siemens 1.5T system. FINDINGS: POSTOPERATIVE CHANGES: -There has been right hemilaminotomies with microdiscectomies at L4-5 and possibly at L5-S1. CORONAL ALIGNMENT: -Minimal levoconvex scoliosis, apex at L3-4. SAGITTAL ALIGNMENT: -Normal lordosis. -There is a 2 mm degenerative appearing retrolisthesis of L4 on L5, and L5 on S1. -No additional subluxation. LUMBOSACRAL JUNCTION: -Normal. There are 5 xva-ovi-rfkneny lumbar-type vertebral bodies. VERTEBRAL BODIES/BONE MARROW: -Minimal edematous endplate changes present at L3-4. -There are no additional regions of abnormal bone marrow edema or infiltrating abnormal signal. -There is no abnormal bone marrow enhancement after contrast administration. DISCS: -There is mild loss of height and signal at L3-4. There is slightly worse loss of height and signal at L4-5 and L5-S1. -Levels above L3 are normal in height and signal. SPINAL CANAL: -There is congenital spinal canal narrowing with shortened pedicles spanning L2-S1, a finding which will exacerbate any acquired spondylosis. CONUS MEDULLARIS: -Terminates at superior endplate of L1. Morphology and signal is normal. INTRADURAL NERVE ROOTS: - Normal in appearance without abnormal enhancement, mass, or clumping. OTHER: -There is no abnormal intra or extradural enhancement identified. -Mild postsurgical enhancement of the posterior paraspinous tissues spanning the posterior L4-5 level. Axial Disc Space Images: T12-L1: No central canal or neural foraminal narrowing present. Normal facets. No change. L1-L2: Minimal congenital narrowing of the central canal. No focal disc pathology or herniation. Mild degenerative facet changes. No significant central canal or significant neural foraminal narrowing. No change. L2-L3: There is congenital spinal canal narrowing. There is mild physiologic bulging of the disc, with mild hypertrophic degenerative facet changes, and posterior ligamentous thickening/infolding. There is mild central canal, mild subarticular recess, and mild bilateral neural foraminal stenosis. No change. L3-L4: There is congenital spinal canal narrowing. Diffuse disc annulus bulging is present with a superimposed right paracentral, lateral, and foraminal broad-based disc protrusion with annular fissuring. Moderate hypertrophic facet changes bilaterally, with significant posterior ligamentous thickening/infolding. Combination of findings is resulting in moderate to severe central canal stenosis, severe right subarticular recess stenosis with likely impingement of the traversing right L4 nerve roots, and moderate right neural foraminal narrowing without definite exiting nerve root impingement. There is mild left neural foraminal narrowing. Findings remain unchanged. L4-L5: There is congenital spinal canal narrowing. Diffuse disc annulus bulging extending into both foraminal zones, with a superimposed central broad-based disc extrusion with minimal inferior migration. Compared with the prior examination, the right paracentral and lateral regions appear to exert slightly more mass effect upon the thecal sac and subarticular recess. When coupled with moderate hypertrophic facet changes bilaterally, and posterior ligamentous thickening/infolding, findings result in severe central canal stenosis (AP diameter of the thecal sac is 6 mm), moderate to severe right greater than left subarticular recess stenosis with probable mass effect/mild impingement upon the traversing right L5 nerve root. No definite mass effect upon the traversing left L5 root. There is moderate right, and sblj-[id number]-sucvwnhn left neural foraminal narrowing without definite impingement of the exiting roots. -Post right laminotomy changes. -Enhancing present granulation tissue present in the left far lateral region. L5-S1: There is a diffuse disc annular bulge, with a new apparent superimposed left paracentral, lateral, and proximal foraminal extrusion of disc material, similar to the prior study however with notable worsening mass effect on the left aspect of the thecal sac and left subarticular recess. Coupled with mild to moderate hypertrophic degenerative facet changes, left posterior ligamentous infolding, combination of findings is resulting in severe central canal stenosis (AP diameter of the central canal is 5 mm), severe left subarticular recess stenosis/impingement, with impingement of the traversing left S1 roots, and moderate right subarticular recess stenosis with contact, mild deviation, but no definite impingement of the traversing right S1 roots. There is moderate bilateral neural foraminal narrowing without definite impingement of the exiting L5 roots. -Post right laminotomy and microdiscectomy changes. Imaged SI Joints: Mild degenerative arthrosis bilaterally. Paravertebral and Included Extraspinal Soft Tissues: -Postop changes dorsal soft tissues of L4-S1. -Otherwise normal appearance. MR/MR lumbar spine wo/w con IMPRESSION: 1. Congenital spinal canal narrowing with superimposed acquired spondylosis. 2. Mildly worsening severe central canal stenosis is present at L4-5, and L5-S1, along with moderate to severe L4-5 subarticular recess stenosis right greater than left , and severe left subarticular recess impingement at L5-S1. The traversing right L5 root appears mildly impinged. The traversing left S1 root appears significantly impinged. 3. No high-grade neural foraminal encroachment. 4. Postoperative right saqib-laminotomies L4-5, and L5-S1, with associated probable microdiscectomies. 5. Aside from L4-5 and L5-S1, the other levels remain unchanged. See above for details. 6. No pathologic contrast enhancement identified. Electronically signed by: Bello Tavares MD 07/24/2024 03:30 PM [facility]
[2024-07-22] MEDS: gadobutroL 10 ML VIAL IVPUSH (09:33)
== END 2024-07-22 08:49 | disposition home or self-care (01) ==
LOC: HO.MRI 08:48
PROVIDERS: PCP Nurse Practitioner Family; Visit Provider Neurological Surgery
DX: M54.16 Radiculopathy, lumbar region (principal)
CPT/HCPCS: 72158; A9585

== ENCOUNTER → 2024-07-22 09:00 | Outpatient (BNV) | payer OTHER, SELFPAY | PROVIDERS: PCP Nurse Practitioner Family; Visit Provider Radiology Diagnostic Radiology | DX: M54.16 Radiculopathy, lumbar region (principal) | CPT/HCPCS: 72158 ==